=== PATIENT | female | born 1955 | race Caucasian/White ===

== ENCOUNTER 2017-11-16 00:47 | Outpatient (CLI) | payer MEDICAID, SELFPAY ==
--- NOTE | 2017-11-16 07:57 | DI.US_ITS ---
SYMPTOM/DIAGNOSIS: ABD PAIN, RT UPPER QUADRANT R10.11 ABDOMINAL ULTRASOUND: 11/16 Hepatic parenchyma appears homogeneous but perhaps mildly echogenic. Liver appears of normal size. No biliary dilatation is seen. Note is made of cholelithiasis without evidence of gallbladder wall thickening or pericholecystic fluid collection. The pancreas appears intact as visualized. The kidneys appear normal. Spleen appears normal. Abdominal aorta and IVC are of normal diameter. CONCLUSION: Cholelithiasis without ultrasound evidence of acute cholecystitis.
== END 2017-11-16 01:07 ==
PROVIDERS: PCP Nurse Practitioner Family; Visit Provider Nurse Practitioner Family
DX: R10.11 Right upper quadrant pain (principal); K80.20 Calculus of gallbladder without cholecystitis without obstruction
CPT/HCPCS: 76700

== ENCOUNTER 2017-12-28 13:01 | Outpatient (REF) | payer MEDICAID, SELFPAY ==
[2017-12-28 13:36] LABS: Cholesterol 218 mg/dL (50-200); HDL Cholesterol 73 mg/dL (40-60); LDL CHOLESTEROL 125 mg/dL (<100); Triglyceride 89 mg/dL (30-150)
== END 2017-12-28 13:21 ==
LOC: LBN 13:01
PROVIDERS: PCP Nurse Practitioner Family; Visit Provider Nurse Practitioner Family
DX: K80.20 Calculus of gallbladder without cholecystitis without obstruction (principal); R03.0 Elevated blood-pressure reading, without diagnosis of hypertension; E78.5 Hyperlipidemia, unspecified
CPT/HCPCS: 80061; 83721

== ENCOUNTER 2018-04-13 07:44 | Day surgery (SDC) | payer MEDICAID, SELFPAY ==
[2018-04-13] VITALS (10 sets, daily range): BP systolic 103–165; BP diastolic 40–91; PULSE 53–70; RESP 16–36; TEMP 35–36.5; O2SAT 94–99
[2018-04-13] MEDS: Lactated Ringers 1,000 ML 80 ML IV ×2 (08:21→12:36)
[2018-04-13] MEDS: Bupivacaine 0.25% Pres-Free 30 ML VIAL (09:12)
[2018-04-13] MEDS: Bupivacaine LIPOSOME/PF 133 MG/10 ML VIAL IJ (09:12)
[2018-04-13] MEDS: Bupivacaine 0.25% Pres-Free 10 ML VIAL (09:12)
--- NOTE | 2018-04-13 09:29 | W.PM.OP ---
Date of service: 04/13/18 Time of Service: 13:05 Operative Note DATE OF PROCEDURE: 04/13/18 PRE-OP DIAGNOSIS: Billiary Colic POST-OP DIAGNOSIS: same PROCEDURE: Laparoscopic Cholecystectomy SURGEON: Itzel Zimmerman CASTING AND LOCKER ROOM SERVICER: Geovanna Galvan ANESTHESIA: GETA ESTIMATED BLOOD LOSS: 50 PATHOLOGY: other (Gallbladder and contents) Patient was transported to: PACU Patient's condition: stable Indications: Mrs. Zapata is a pleasant 62 year old female who was seen in the office for recurrent Biliary colic symptoms. US showed stones but no wall thickening or pericholecystic fluid. Risks, benefits and complications were reviewed with the patient and she wished to proceed. No guarantees were given or implied. Findings: Normal appearing gallbladder Duct of sj identified and clipped Procedure Description: After informed consent was obtained the patient was taken to the PACU and anesthesia performed a erector spine block for postoperative comfort. Once the block was in place the patient was brought to the operating room, placed in a supine position and monitors were applied. SCDs were applied to her lower extremities and she was placed under general anesthesia and intubated without difficulty. Once intubated a Ontiveros catheter was placed in a standard sterile fashion. Her abdomen was then prepped and draped in a sterile fashion using ChloraPrep. At this point a timeout was done and the patient's name, date of , procedure type, allergies to medications, metal in her body, antibiotic and DVT prophylaxis, and fire risk was assessed. At this point 0.5% Marcaine with epi mixed with 1% Lidocaine was injected just above the umbilicus into the dermis and subcutaneous tissue. A 5 mm incision was made with an 11 blade. The skin next to the incision was grasped with penetrating towel clamps and while pulling up on the skin an attempt was made to place a 5 mm port under direct visualization. Due to the patient's size I did not feel comfortable pushing so hard to try to get through the fascia. The skin with incision was opened a little bit more with the 11 blade scalpel and the fascia was identified using S retractors. Once the fascia was identified it was grasped with 2 [place]'s and pulled up using an 11 blade a small incision was made into the fascia and the 5 mm port was then placed under direct visualization into the abdomen without difficulty. The abdomen was insufflated and then 3 more ports were placed. A 12 mm port was placed in the subxiphoid area and two 5 mm ports were placed in the right upper quadrant. The liver was inspected and some fatty infiltration was noted. The patient's bed was then turned to the left and her head was brought up. The gallbladder was grasped at the body and pushed towards the right shoulder, this allowed me to visualize the neck of the gallbladder. The neck was grasped and pulled towards the right flank and down allowing me to visualize the lymph node. Using a [place] dissector with cautery the lymph node was gently dissected away from the tissues and the fatty tissue was also dissected away. The cystic duct was identified it was normal in size. The duct was dissected 360 degrees using the [place] dissector in order for me to visualize its entrance into the gallbladder. Liver was noted behind it. There were no other structures right behind. Critical view was achieved. 3 clips were placed one proximal and 2 distal and the cystic duct was cut. The cystic artery was then identified and dissected 360 degrees. It was located just medial to the cystic duct. It was visualized going into the gallbladder. Once dissected 3 more clips were placed one proximal and 2 distal and the artery was cut. Using the hook dissector the gallbladder was then dissected away from the liver bed. [place] up the gallbladder there was a nother structure noted to be coming from the liver into the gallbladder. It was 1-2 mm in size. A clip was placed distal and it was transected. There was some bile noted. I through this may be a duct of Lushka but I had never seen one before. The gallbladder was completely dissected away from the liver and placed into an Endo Catch bag and pulled through the 12 mm port site. The 12-minute meter port was placed back into the abdomen under direct visualization. The liver bed was inspected no bleeding was noted. The abdomen was then irrigated with a liter and a half of normal saline until the effluent was clear. Once all the fluid was suctioned out 20 cc of the local anesthetic mixture was injected above the liver to help with postoperative right shoulder pain. The 12 mm and the 2 right upper quadrant ports were removed under direct visualization and no bleeding was noted from the fascia. The abdomen was deflated completely and lastly the umbilical port was removed. The skin was cleaned and the incisions were closed with 4-0 Vicryl. The skin was dried and skin affix was applied over the closed incisions. Needle and sponge counts were correct at the end of the case. The Ontiveros catheter was removed. At this point the patient was woken up extubated and taken back to recovery in stable condition. There were no immediate complications. Due to the extra duct that was clipped I ordered a HIDA scan to make sure that there was no leak and no injury to the common bile duct or the right hepatic duct. The HIDA scan is pending at the time of this dictation.
--- NOTE | 2018-04-13 09:29 | W.PM.DSUDISC ---
Discharge Plan Disposition Patient Disposition: HOME Condition: Good Discharge Details Reason For Visit: Billiary Cholic Attending Provider: Itzel Zimmerman Primary Care Provider: Tayler Bhatt Home Meds and New Rx's Prescriptions: New ibuprofen 600 mg tablet 600 mg PO QID PRN (Reason: fever or pain) Qty: 20 RF: 0 acetaminophen 325 mg capsule 650 mg PO Q6H PRN (Reason: fever or pain) Qty: 20 RF: 0 oxycodone 5 mg tablet 5 mg PO Q6H PRN (Reason: pain) Qty: 14 RF: 0 Continued estradiol [Vagifem] 10 mcg tablet 10 mcg VG DAILY RF: 0 multivitamin 1 EACH capsule 1 ea PO DAILY RF: 0 cholecalciferol (vitamin D3) [Vitamin D3] 400 UNIT capsule 400 unit PO DAILY RF: 0 atorvastatin 20 mg Tablet 20 mg PO QHS RF: 0 Discharge Instructions Instructions: Laparoscopic Cholecystectomy (DC) Additional Instructions: Activity at Home after surgery: 1. Make sure you walk outside at least 4 times per day 2. You should be able to climb a flight of stairs 3. No driving while in pain or taking pain medications 4. No strenuous activity or heavy lifting for 2 weeks (laparoscopic surgery) Diet, Nutrition, & wound healin. Avoid alcohol until after you are recovered from your surgery 2. Make sure to eat plenty of lean protein (meat, fish, eggs, cottage cheese, beans) 3. Eat a variety of fruits and vegetables. Eat plenty of high fiber foods to avoid constipation. 4. Drink plenty of liquids to stay hydrated and avoid constipation Pain Medications: 1. Alternate Tylenol 650 mg and Ibuprofen 600 mg every 3 hours 2. If a narcotic has been prescribed take as directed only for breakthrough pain For Constipation: 1. Take Milk of Magnesia or MiraLax as needed for constipation Other: 1. You may shower daily. Do not scrub the incisions 2. Do not soak the incisions for 1 week 3. You may alternate ice and heat as needed for pain and swelling Wound Care: 1. Keep the incisions clean and dry Please call our office if you develop: 1. Fevers >101.5 2. Nausea or Vomiting 3. Worsening pain 4. Redness and thick discharge from the wounds If after hours please call the Hospital at and ask to speak to the on-call surgeon Stand Alone Forms: Anes.Nerve Block Instructions, Mark De Luna ([facility]) Referrals: Jeni Almonte PA [PH[employer] SALES MANAGER] - 04/28/18 1:15 pm Activity:: Activity as Tolerated Diet:: low fat diet Discharge Orders Discharge Orders: Discharge Order (Routine); Ordered 04/13/18 Ordered By: Itzel Zimmerman DS: Diagnosis Discharge Diagnosis (1) Recurrent biliary colic: Status: Acute (2) S/P laparoscopic cholecystectomy: Status: Acute
--- NOTE | 2018-04-13 09:32 | PDOC.DSDIS_ITS ---
Discharge Plan Disposition Patient Disposition: HOME Condition: Good Discharge Details Reason For Visit: Billiary Cholic Attending Provider: Itzel Zimmerman Primary Care Provider: Tayler Bhatt Home Meds and New Rx's Prescriptions: New ibuprofen 600 mg tablet 600 mg PO QID PRN (Reason: fever or pain) Qty: 20 RF: 0 acetaminophen 325 mg capsule 650 mg PO Q6H PRN (Reason: fever or pain) Qty: 20 RF: 0 oxycodone 5 mg tablet 5 mg PO Q6H PRN (Reason: pain) Qty: 14 RF: 0 Continued estradiol [Vagifem] 10 mcg tablet 10 mcg VG DAILY RF: 0 multivitamin 1 EACH capsule 1 ea PO DAILY RF: 0 cholecalciferol (vitamin D3) [Vitamin D3] 400 UNIT capsule 400 unit PO DAILY RF: 0 atorvastatin 20 mg Tablet 20 mg PO QHS RF: 0 Discharge Instructions Instructions: Laparoscopic Cholecystectomy (DC) Additional Instructions: Activity at Home after surgery: 1. Make sure you walk outside at least 4 times per day 2. You should be able to climb a flight of stairs 3. No driving while in pain or taking pain medications 4. No strenuous activity or heavy lifting for 2 weeks (laparoscopic surgery) Diet, Nutrition, & wound healin. Avoid alcohol until after you are recovered from your surgery 2. Make sure to eat plenty of lean protein (meat, fish, eggs, cottage cheese, beans) 3. Eat a variety of fruits and vegetables. Eat plenty of high fiber foods to avoid constipation. 4. Drink plenty of liquids to stay hydrated and avoid constipation Pain Medications: 1. Alternate Tylenol 650 mg and Ibuprofen 600 mg every 3 hours 2. If a narcotic has been prescribed take as directed only for breakthrough pain For Constipation: 1. Take Milk of Magnesia or MiraLax as needed for constipation Other: 1. You may shower daily. Do not scrub the incisions 2. Do not soak the incisions for 1 week 3. You may alternate ice and heat as needed for pain and swelling Wound Care: 1. Keep the incisions clean and dry Please call our office if you develop: 1. Fevers >101.5 2. Nausea or Vomiting 3. Worsening pain 4. Redness and thick discharge from the wounds If after hours please call the Hospital at and ask to speak to the on-call surgeon Stand Alone Forms: Anes.Nerve Block Instructions, Mark De Luna ([facility]) Referrals: Jeni Almonte PA [PHYSICIANS BLENDING SUPERVISOR] - 04/28/18 1:15 pm Activity:: Activity as Tolerated Diet:: low fat diet Discharge Orders Discharge Orders: Discharge Order (Routine); Ordered 04/13/18 Ordered By: Itzel Zimmerman DS: Diagnosis Discharge Diagnosis (1) Recurrent biliary colic: Status: Acute (2) S/P laparoscopic cholecystectomy: Status: Acute
[2018-04-13] MEDS: CLINDAMYCIN 600 MG/50 ML BAG 100 MG IVPB (09:40)
--- NOTE | 2018-04-13 10:33 | GB_PTH ---
PATIENT: Xuan Zapata LOC: [facility] U#:[id number] AGE/SX: 62/F ROOM: RE04/13/[address]: Itzel Zimmerman MD : [id number] BED: DIS: 04/13/2018 SPEC #: [id number] RECD: 04/13/18 12:55 STATUS: TEENA REQ #: [id number] OZZIE: 04/13/18 10:[address]: Itzel Zimmerman DEPT: Surgical Specimen RECD BY: Lucia Prater ENTERED: 04/13/18 12:56 SP TYPE: GB OTHR DR: Tayler Bhatt Tissues: 1 - GALLBLADDER Procedures: GROSS AND MICRO LEVEL 3 Comments: [id number]
[2018-04-13] MEDS: Lidocaine 1% Multi-Dose 50 ML VIAL (10:37)
--- NOTE | 2018-04-13 10:55 | DI.NM_ITS ---
SYMPTOM/DIAGNOSIS: S/P LAP TAWANDA, CHECK ANATOMY, ? LEAK, PAIN HEPATOBILIARY SCAN: 4.6 millicuries of Technetium 99 M Mebrofenin were administered IV. There is normal hepatic uptake. The biliary tree and small bowel are promptly visualized. The patient is status post cholecystectomy. There is no evidence of bile leak. A small amount of reflux is seen into the stomach. IMPRESSION: No evidence of bile leak. Biliary reflux into the stomach.
--- NOTE | 2018-04-13 17:42 | DI.VRAD_ITS ---
EXAM: NM Hepatobiliary Including Gallbladder When Present EXAM DATE/TIME: 04/13/2018 5:08 PM CLINICAL HISTORY: 62 years old, female; Signs and symptoms; Other: R/O bile leak; Prior surgery; Surgery date: Post-operative (0-2 days); Surgery type: Cholecystectomy TECHNIQUE: Frontal dynamic images of the abdomen and pelvis were obtained over 60 minutes following the intravenous administration of 4.6 mCi technetium 99 mebrofenin. COMPARISON: No relevant prior studies available. FINDINGS: Liver: Unremarkable. Homogeneous radiotracer uptake. Gallbladder: Gallbladder surgically absent. Bile Ducts: Unremarkable. Clearly visualized. Stomach and bowel: Unremarkable. Radiotracer activity is seen in the small bowel. Other findings: Transient activity noted within the stomach suggestive of biliary reflux. IMPRESSION: 1. No evidence of bile leak. 2. Transient activity noted within the stomach suggestive of biliary reflux. Dictated and Authenticated by: Teddy Oden MD. Ordering:ALCIDES Robbins MD
== END 2018-04-13 18:10 | disposition home or self-care (01) ==
PROVIDERS: PCP Nurse Practitioner Family; Visit Provider Surgery
PROC: 0FT44ZZ Resection of Gallbladder, Percutaneous Endoscopic Approach (ICD-10-PCS; CPT 47562; principal; 2018-04-13 09:00)
DX: R10.84 Generalized abdominal pain (principal); K81.1 Chronic cholecystitis; K82.4 Cholesterolosis of gallbladder; Q44.1 Other congenital malformations of gallbladder; I10 Essential (primary) hypertension; F17.210 Nicotine dependence, cigarettes, uncomplicated
CPT/HCPCS: 47562; 76942; 78227; 88304; J1100; J1885; J2405

== ENCOUNTER 2019-11-17 09:16 | Outpatient (REF) | payer MEDICAID, SELFPAY ==
[2019-11-17 19:30] LABS: HCT 41.1 % (36.0-46.0); HGB 13.6 g/dL (11.2-15.7); MCH 31.6 pg (27.0-33.0); MCHC 33.1 % (32.0-36.0); MCV 95.4 fL (80-95); MPV 11.1 fL (8.0-11.0); Platelet Count 190 10^3/uL (130-400); RBC 4.31 10^6/uL (3.93-5.22); RDW 12.2 % (11.7-14.6); RDW-SD 42.9 fL; WBC 5.78 10^3/uL (4.4-10.8)
[2019-11-17 20:05] LABS: ALT 31 U/L (14-59); AST 19 U/L (15-37); Albumin 3.8 g/dL (3.4-5.0); Alkaline Phosphatase 57 U/L (46-116); Anion Gap 7.2 mmol/L (3-11); BUN 15 mg/dL (7-18); CO2 26.8 mmol/L (21.0-32.0); CREATININE 0.76 mg/dL (0.55-1.02); Calcium 8.8 mg/dL (8.5-10.1); Calculated LDL 114 mg/dL (<100); Chloride 105 mmol/L (98-107); Cholesterol 197 mg/dL (<200); Glucose 101 mg/dL (74-106); HDL Cholesterol 67 mg/dL (40-60); Sodium 139 mmol/L (136-145); Total Protein 6.6 g/dL (6.4-8.2); Triglyceride 80 mg/dL (<150)
[2019-11-17 22:55] LABS: Bilirubin, Total 0.3 mg/dL (0.2-1.0)
== END 2019-11-17 09:36 ==
LOC: NCHCN 09:16
PROVIDERS: PCP Nurse Practitioner Family; Visit Provider Nurse Practitioner Family
DX: I10 Essential (primary) hypertension (principal); E78.5 Hyperlipidemia, unspecified
CPT/HCPCS: 80053; 80061; 85027

== ENCOUNTER 2019-12-28 17:20 | Outpatient (REF) | payer MEDICAID, SELFPAY ==
[2020-01-03 01:01] LABS: Patient Race White; SARS-CoV-2 RNA Undetected (Undetected); SARS-CoV-2 Specimen Source Nasal
== END 2019-12-28 17:40 ==
LOC: NCHCN 17:20
PROVIDERS: PCP Nurse Practitioner Family; Visit Provider Nurse Practitioner Family
DX: Z20.828 Contact with and (suspected) exposure to other viral communicable diseases (principal)
CPT/HCPCS: U0003

== ENCOUNTER 2020-05-09 01:28 | Outpatient (CLI) | payer MEDICARE, MEDICAID, SELFPAY ==
--- NOTE | 2020-05-09 | DI.RAD_ITS ---
EXAM: XR CHEST 2V PA LATERAL CLINICAL HISTORY: SOB,R06.02. TECHNIQUE: 2D digital imaging was performed. COMPARISON: CR CHEST 2 VIEWS PA,LAT from 03/03/2012 FINDINGS: Heart size is normal. The mediastinum is not widened. Lungs are clear. No infiltrates nor pleural effusions. IMPRESSION: No acute pulmonary findings.No significant change compared to 2012. DATA REPOSITORY: RADIATION DOSE DELIVERED:
== END 2020-05-09 01:48 ==
PROVIDERS: PCP Nurse Practitioner Family; Visit Provider Nurse Practitioner Family
DX: R06.02 Shortness of breath (principal)
CPT/HCPCS: 71046

== ENCOUNTER 2021-01-27 16:11 | Outpatient (REF) | payer MEDICARE, MEDICAID, SELFPAY ==
[2021-01-27 20:42] LABS: BUN 14 mg/dL (7-18); CREATININE 0.8 mg/dL (0.55-1.02); Calcium 9.2 mg/dL (8.5-10.1); Chloride 104 mmol/L (98-107); Glucose 93 mg/dL (74-106); Potassium 4.5 mmol/L (3.5-5.1); Sodium 139 mmol/L (136-145)
== END 2021-01-27 16:12 | disposition home or self-care (01) ==
LOC: NCHCN 16:11
PROVIDERS: PCP Nurse Practitioner Family; Visit Provider Family Medicine
DX: I10 Essential (primary) hypertension (principal)
CPT/HCPCS: 80048

== ENCOUNTER → 2021-06-23 08:35 | Outpatient (BNVA) | payer MEDICARE, MEDICAID, BC, SELFPAY | PROVIDERS: PCP Nurse Practitioner Family; Referring Provider Nurse Practitioner Family | DX: M65.4 Radial styloid tenosynovitis [de Quervain] (principal); M25.532 Pain in left wrist | CPT/HCPCS: 20550; 99203; J1030 ==

== ENCOUNTER → 2021-07-16 02:52 | Outpatient (CLI) | payer MEDICARE, MEDICAID, BC, SELFPAY ==
--- NOTE | 2021-07-16 07:30 | DI.MAMMO_ITS ---
Exam(s) MAMMO SCREENING EXAM: MAMMO SCREENING CLINICAL HISTORY: SCREENING, Z12.39 TECHNIQUE: Mammograms were interpreted according to the usual protocol including computer analysis w GlucoSentient CAD system, tomosynthesis and C-view imaging. COMPARISON: FINDINGS: The breasts are of moderate density with fairly symmetrical distribution of fibroglandular tissue. N o dominant mass or clumped microcalcification is identified in either breast. The current examinatio n is compared with previous examinations including June 2013 and there has been no gross interval grewal ge in appearance in comparison with the prior studies. IMPRESSION: No specific evidence of malignancy at this time. Routine screening examinations are suggested at yea rly intervals in this age group according to the ACS ACR guidelines. BI-RADS Category 1 - Negative Breast Density - Category B - Scattered areas of fibroglandular density
--- NOTE | 2021-07-16 08:00 | DI.CTLCSR_ITS ---
Exam(s) CT CHEST LUNG CANCER SCREEN EXAM: CT CHEST LUNG CANCER SCREEN CLINICAL HISTORY: CIGARETTE SMOKER, F17.210,screening for lung ca TECHNIQUE: CT examination of the chest was performed utilizing low-dose lung cancer screening protoc ol. COMPARISON: No exams were available for comparison FINDINGS: Images obtained through the upper abdomen show unremarkable appearance of visualized portions of the liver and spleen. Note is made of a prior cholecystectomy. Note is made of coronary artery calcification. There is no mediastinal or hilar adenopathy. Mediastinal vascular structures appear intact by noncon trast criteria. Tracheobronchial tree appears intact. No pleural effusion or pleural-based mass. The lungs are predominantly clear with moderate central lobular emphysematous changes. There are 2 m illimeter noncalcified pulmonary nodules in both lower pulmonary lobes. IMPRESSION: Lung RADS Cat 2 - Benign Appearance / Behavior: Nodules with a very low likelihood of becoming a cli nically active cancer due to size or lack of growth Continue annual screening with LDCT in 12 months. Lung-RADS 1.0 CATEGORIES: Category 0 - Prior chest CT exam(s) being located for comparison. Category 1 - Annual screening in 12 months. No nodules or definitely benign nodules. Category 2 - Annual screening in 12 months. Benign appearance. Nodules with low likelihood of becomin g active cancer. Category 3 - 6-month follow-up. Probably benign. Short-term follow-up suggested. Nodules with low lik elihood of becoming active cancer. Category 4A - 3-month follow-up and CT/PET if >8 mm in size. Suspicious finding. Findings which requi re additional testing. Category 4B - Findings which require additional testing and tissue sampling. Suspicious finding. Category 4X - Category 3 or 4 nodules with additional features or imaging findings that increases the suspicion of malignancy. Modifier S- Potentially clinically significant finding. (Non lung cancer) RADIATION DOSE DELIVERED: 74.52mGy.cm Total DLP 1.84mGy CTDIvol 74.52mGy.cm Total DLP !Error CTDIvol RADIATION OPTIMIZATION: All CT scans at this facility use at least one of these dose optimization te chniques: automated exposure control; mA and/or kV adjustment per patient size (includes targeted exa ms where dose is matched to clinical indication); or iterative reconstruction.
== END ==
PROVIDERS: PCP Nurse Practitioner Family; Visit Provider Nurse Practitioner Family
DX: Z12.31 Encounter for screening mammogram for malignant neoplasm of breast (principal); Z12.2 Encounter for screening for malignant neoplasm of respiratory organs; F17.210 Nicotine dependence, cigarettes, uncomplicated; R91.8 Other nonspecific abnormal finding of lung field; J43.8 Other emphysema
CPT/HCPCS: 71271; 77063; 77067

== ENCOUNTER 2021-12-09 15:15 | Outpatient (REF) | payer MEDICARE, MEDICAID, SELFPAY ==
[2021-12-09 17:26] LABS: Anion Gap 8.9 mmol/L (3-11); BUN 17 mg/dL (7-18); CO2 27.1 mmol/L (21.0-32.0); CREATININE 0.8 mg/dL (0.55-1.02); Calcium 9.3 mg/dL (8.5-10.1); Calculated LDL 82 mg/dL (<100); Chloride 101 mmol/L (98-107); Cholesterol 181 mg/dL (<200); Estimated GFR 80.71 (mL/min/1.73m2); Glucose 105 mg/dL (74-106); HDL Cholesterol 82 mg/dL (40-60); Potassium 4.3 mmol/L (3.5-5.1); Sodium 137 mmol/L (136-145); Triglyceride 89 mg/dL (<150)
== END 2021-12-09 15:16 | disposition home or self-care (01) ==
LOC: NCHCN 15:15
PROVIDERS: PCP Nurse Practitioner Family; Visit Provider Nurse Practitioner Family
DX: I10 Essential (primary) hypertension (principal); E78.5 Hyperlipidemia, unspecified
CPT/HCPCS: 80048; 80061

== ENCOUNTER 2022-12-14 11:12 | Outpatient (REF) | payer MEDICARE, SELFPAY ==
[2022-12-14 15:32] LABS: ALT 31 U/L (14-59); AST 28 U/L (15-37); Albumin 3.9 g/dL (3.4-5.0); Alkaline Phosphatase 60 U/L (46-116); Anion Gap 10.8 mmol/L (3-11); BUN 8 mg/dL (7-18); Bilirubin, Total 0.6 mg/dL (0.2-1.0); CO2 24.2 mmol/L (21.0-32.0); CREATININE 0.9 mg/dL (0.55-1.02); Calcium 9.6 mg/dL (8.5-10.1); Calculated LDL 142 mg/dL (<100); Chloride 104 mmol/L (98-107); Cholesterol 239 mg/dL (<200); Estimated GFR 69.64 (mL/min/1.73m2); Glucose 112 mg/dL (74-106); HDL Cholesterol 70 mg/dL (40-60); Potassium 4.1 mmol/L (3.5-5.1); Sodium 139 mmol/L (136-145); Total Protein 7.2 g/dL (6.4-8.2); Triglyceride 139 mg/dL (<150)
== END 2022-12-14 11:13 | disposition home or self-care (01) ==
LOC: NCHCN 11:12
PROVIDERS: Nurse Practitioner Family; PCP Nurse Practitioner Family; Visit Provider Nurse Practitioner Family
DX: I10 Essential (primary) hypertension (principal); E78.5 Hyperlipidemia, unspecified
CPT/HCPCS: 80053; 80061

== ENCOUNTER → 2023-01-21 00:56 | Outpatient (CLI) | payer MEDICARE, SELFPAY ==
--- NOTE | 2023-01-21 | DI.NM_ITS ---
APPROVED REPORT Exam: Pharmacologic Patient Location: Out-Patient Room/Bed: Stress Nurse: Elizabeth Melendez RN Ordering Provider:JEAN-CLAUDE CHEUNG, Contact Number: [phone] BMI: 32.91 Baseline Rhythm: Sinus Bradycardia, LBBB Indications: intermittent CP, uncontrolled BP, GONZALES Medical History Medical History: HTN, tobacco use, emphysema Cardiac Medications: Albuterol, losartan-HCTZ, atenolol Allergies: penicillins, sulfa, macrobid, chantix Cardiac Risk Factors: HTN, HLD, smoker Previous Cardiac Procedures: none Pretest Chest Pain Characteristics: none Exercise History: none Physical Disabilities: none Lung Sounds: Clear to auscultation Heart Sounds: Regular, Bradycardia Stress Test Details Test: Pharmacologic stress testing performed using 0.4 mg of regadenoson per 5 mL given IV over 10 s econds. Nuclear Acquisition: Rest Tc-99m/Stress Tc-99m 1 day Rest Isotope: Tc-99m Sestamibi. Dose: 10.2 Date: 01/21/2023 Injection Time: 0840 Stress Isotope: Tc-99m Sestamibi. Dose: 32.8 Date: 01/21/2023 Injection Time: 1005 HR Resting HR Supine: 53 bpm Max Heart Rate (APMHR): 152.835098 bpm Target HR (85% APMHR): 129.419252 bpm Max HR Achieved: 88 bpm % of APMHR: 57.89 Recovery HR: 69 bpm BP Resting BP Supine: 179/73 mmHg Max BP: 190/70 mmHg Recovery BP: 172/68 mmHg ECG Resting ECG: Sinus Bradycardia, LBBB Ectopy: none Stress ECG: Sinus Rhythm, LBBB ST Change: No significant ST segment changes noted Arrhythmia: None Recovery ECG: Sinus Rhythm, LBBB Recovery ST Change: No significant ST segment changes noted Recovery Arrhythmia: None Clinical Rate Pressure Product: [id number] Stress ECG Conclusion 1. Resting electrocardiogram shows left axis, left bundle branch block 2. Patient underwent testing using pharmacologic stress with regadenoson 3. Heart rate achieved was 68% of predicted for age 4. Electrocardiographic portion of the test was nondiagnostic due to inadequate heart rate and LBBB 5. See MPI report Stress Test Summary STAGE HR BP SpO2 Symptoms NOTES Supine 53 179/70 96 1 min post Lexiscan injection 71 169/70 95 3 min post Lexiscan injection 76 190/70 98 6 min post Lexiscan injection 69 172/68 98 MPI Conclusion Myocardial perfusion is normal. There is no ischemia or evidence of prior infarction Ejection fraction is 57% with normal wall motion Radiologist Interpretation Radiologist agrees with Biomedical Engineering Technician's Interpretation. Radiologist Interpretation by: Elle Sarabia MD Interpretation Date/Time: 01/21/2023 15:27:56
[2023-01-21] MEDS: Regadenoson 0.4 MG/5 ML SYR IVP (09:52)
== END ==
PROVIDERS: PCP Nurse Practitioner Family; Visit Provider Nurse Practitioner Family
DX: R07.9 Chest pain, unspecified (principal)
CPT/HCPCS: 78452; 93016; 93018; 93017; J2785

== ENCOUNTER 2023-01-29 10:39 | Outpatient (CLI) | payer MEDICARE, SELFPAY | END 2023-01-29 10:40 | disposition home or self-care (01) | PROVIDERS: PCP Nurse Practitioner Family; Visit Provider Nurse Practitioner Family | DX: I10 Essential (primary) hypertension (principal) | CPT/HCPCS: 93005; 93010 ==

== ENCOUNTER 2023-03-08 16:30 | Outpatient (REF) | payer MEDICARE, SELFPAY ==
[2023-03-08 18:28] LABS: Anion Gap 8.1 mmol/L (3-11); BUN 6 mg/dL (7-18); CO2 27.9 mmol/L (21.0-32.0); CREATININE 0.9 mg/dL (0.55-1.02); Calcium 9.8 mg/dL (8.5-10.1); Chloride 97 mmol/L (98-107); Estimated GFR 69.64 (mL/min/1.73m2); Glucose 119 mg/dL (74-106); Potassium 4.4 mmol/L (3.5-5.1); Sodium 133 mmol/L (136-145)
== END 2023-03-08 16:31 | disposition home or self-care (01) ==
LOC: NCHCN 16:30
PROVIDERS: PCP Nurse Practitioner Family; Visit Provider Nurse Practitioner Family
DX: I10 Essential (primary) hypertension (principal)
CPT/HCPCS: 80048

== ENCOUNTER 2023-08-09 16:02 | Outpatient (REF) | payer MEDICARE, SELFPAY ==
[2023-08-09 16:01] LABS: Abs Immature Grans 0.02 10^3/uL (0.0-0.06); Absolute Basophil Count 0.03 10^3/uL (0.0-0.2); Absolute Eosinophil Count 0.11 10^3/uL (0.0-0.7); Absolute Lymphocyte Count 1.51 10^3/uL (1.2-3.4); Absolute Monocyte Count 0.57 10^3/uL (0.1-0.8); Absolute Neutrophil Count 3.51 10^3/uL (1.2-6.7); Basophils % 0.5 %; Eosinophils % 1.9 %; HCT 44.7 % (36.0-46.0); HGB 14.8 g/dL (11.2-15.7); Immature Grans % 0.3 %; Lymphocytes % 26.3 %; MCH 31.7 pg (27.0-33.0); MCHC 33.1 % (32.0-36.0); MCV 96 fL (80-95); Monocytes % 9.9 %; Neutrophils % 61.1 %; RBC 4.67 10^6/uL (3.93-5.22); RDW 12.3 % (11.7-14.6); RDW-SD 43.6 fL; WBC 5.75 10^3/uL (4.4-10.8)
[2023-08-09 16:21] LABS: Diff Comment PLT Morph Reviewed; RBC Morphology Normal
[2023-08-09 17:06] LABS: ALT 30 U/L (14-59); AST 18 U/L (15-37); Albumin 3.8 g/dL (3.4-5.0); Alkaline Phosphatase 63 U/L (46-116); Anion Gap 8.9 mmol/L (3-11); BUN 12 mg/dL (7-18); Bilirubin, Total 0.62 mg/dL (0.2-1.0); CO2 29.1 mmol/L (21.0-32.0); CREATININE 0.8 mg/dL (0.55-1.02); Calcium 9.7 mg/dL (8.5-10.1); Chloride 103 mmol/L (98-107); Estimated GFR 80.21 (mL/min/1.73m2); Glucose 102 mg/dL (74-106); Magnesium 1.6 mg/dL (1.8-2.4); Potassium 4.7 mmol/L (3.5-5.1); Sodium 141 mmol/L (136-145); Total Protein 6.7 g/dL (6.4-8.2)
== END 2023-08-09 16:03 | disposition home or self-care (01) ==
LOC: NCHCN 16:02
PROVIDERS: PCP Nurse Practitioner Family; Visit Provider Nurse Practitioner Family
DX: R60.0 Localized edema (principal); I10 Essential (primary) hypertension
CPT/HCPCS: 80053; 83735; 85025

== ENCOUNTER 2023-11-23 13:02 | Outpatient (REF) | payer MEDICARE, SELFPAY ==
[2023-11-23 19:42] LABS: Anion Gap 8.6 mmol/L (3-11); BUN 10 mg/dL (7-18); CO2 30.4 mmol/L (21.0-32.0); CREATININE 0.9 mg/dL (0.55-1.02); Calcium 9.8 mg/dL (8.5-10.1); Calculated LDL 128 mg/dL (<100); Chloride 99 mmol/L (98-107); Cholesterol 233 mg/dL (<200); Glucose 107 mg/dL (74-106); HDL Cholesterol 88 mg/dL (40-60); Magnesium 1.7 mg/dL (1.8-2.4); Potassium 4.3 mmol/L (3.5-5.1); Sodium 138 mmol/L (136-145); Triglyceride 88 mg/dL (<150)
== END 2023-11-23 13:03 | disposition home or self-care (01) ==
LOC: NCHCN 13:02
PROVIDERS: PCP Nurse Practitioner Family; Visit Provider Nurse Practitioner Family
DX: E78.5 Hyperlipidemia, unspecified (principal)
CPT/HCPCS: 80048; 80061; 83735

== ENCOUNTER 2024-02-16 11:20 | Inpatient (IN) | payer MEDICARE, SELFPAY ==
[2024-02-16] VITALS (27 sets, daily range): BP systolic 114–207; BP diastolic 40–109; PULSE 63–83; RESP 11–33; TEMP 36.3–36.6; O2SAT 92–97
--- NOTE | 2024-02-16 11:15 | RT.EKG_ITS ---
APPROVED REPORT Exam: Resting ECG Reason for Exam: Stroke ? Patient Location: E HR:73 bpm ECG Measurements Heart Rate 73 AXIS SD 164 P 65 QRSd 154 QRS -55 QT 446 T 98 QTc 491 Conclusion Sinus rhythm...normal P axis, V-rate 60- 99 LVH with secondary repolarization abnormality...multi-LVH criteria, abnrm ST-T Anterior infarct, old...Q >40mS, abnormal ST-T, V2-V5 Physician: IVCD vs incomplete LBBB. New compared to prior ekg 11 years ago
--- NOTE | 2024-02-16 11:30 | DI.CT_ITS ---
Exam(s) CT BRAIN NECK CTA EXAM: CT BRAIN NECK CTA CLINICAL HISTORY: stroke, speech and right upper ext deficits. TECHNIQUE: Imaging Protocol: Axial CT angiography was performed with multi-slice acquisition and mu lti-planar and/or 3D reconstructions. CONTRAST MATERIAL: Intravenous: Omnipaque 350 Contrast volume:structured data in ml COMPARISON: No exams were available for comparison FINDINGS: CTA Neck W: Aortic arch anatomy: The aortic arch anatomy is conventional. Some calcified plaque is noted at the origin of the left subclavian artery but without an obvious critical stenosis at this level nor tight stenosis in this artery proximal to the takeoff point of the left vertebral artery. Anterior circulation: Both common carotid arteries ascend with normal luminal diameters. On the left side there is significant calcified plaque at the carotid bifurcation with approximately 80 percent stenosis at this level. Plaque extends into the origin of the left ICA. Above this level the left ICA in the mid-upper neck is patent, although does exhibit some tortuosity prior to enterin g the skull base-left carotid canal. On the opposite-right side there is mild amount of plaque at the carotid bulb. Calcified plaque in t he proximal right ICA posterior wall noted with approximately 30 percent stenosis on this side. Abov e this level the right ICA in the upper neck is patent as well as in the right carotid canal within t he skull base. Posterior circulation: Both vertebral arteries originated conventional fashion off of the subclavian arteries. Left vertebr al artery is dominant. There is no significant stenosis at its origin thorough within this vessel wi thin the foramen transversarium. Also no evidence of dissection. At the skull base it is the domina nt contributor to the formation of the basilar artery. The right vertebral artery originates in conventional fashion off of the right subclavian artery with some mild plaque at its origin. The right vertebral artery ascends with smaller caliber than the le ft vertebral artery but no evidence of occlusion nor dissection. At the skull base the right vertebr al artery also contributes to the formation of the basilar artery. CTA Brain W: Anterior circulation: Both internal carotid arteries are patent in the skull base-carotid canals as well as within the cave rnous sinuses. There is some circumferential mural plaque within the intra cavernous ICAs bilaterall y. The supraclinoid aspects of the ICAs are patent. Both A1 segments are patent as are the anterior cer ebral arteries and there is no evidence of aneurysm at the level of the anterior communicating artery . Both middle cerebral arteries are patent with no evidence of significant stenosis nor intraluminal th rombus. There also no aneurysms of these vessels. Posterior circulation: The basilar artery ascends in the midline. Distally it gives off patent bilateral superior cerebella r arteries. Above this level the basilar artery terminates as patent bilateral posterior cerebral arteries. There are posterior communicating arteries on both sides the amzyxb-te-Akyndy, slightly larger on the left side There is no evidence of aneurysm at the tip of the basilar artery nor elsewhere in the ohqpkw-yr-Xtvv is. CT BRAIN: There is no evidence of intracranial hemorrhage, mass effect, or shift of midline structures. There are no extra-axial fluid collections. Ventricles are not enlarged or shifted. There are no ring enh ancing lesions in the brain. There is an abnormal hypodense area in the left occipital parietal jass on concerning for infarct at this level. There is some gyral enhancement at this level noted on the delayed postcontrast images. No ring enhancing lesions Incidental findings: There are nodules noted in both thyroid lobes. IMPRESSION: 1. There is significant partially calcified plaque in the carotid arteries on both sides the neck. T here is approximately 80 percent stenosis in the left carotid bulb. There is approximately 20-30 per cent stenosis in the proximal right ICA 2. Patent vertebral arteries. The left vertebral artery is dominant. Both vertebral arteries contri bute to the formation of the basilar artery at the skull base. No evidence of vertebral artery throm bosis nor dissection. 3. Patent intracranial arteries. 4. However, there is an abnormal area of hypodensity in the left occipital lobe region consistent wit h nonhemorrhagic infarct. There is some gyral enhancement at this level noted. No ring enhancing le sions evident at this level nor elsewhere in the brain. 5. Recommend follow-up MRI diffusion imaging 6. Incidentally noted are prominent nodules in both thyroid lobes which can be further investigated w ith thyroid ultrasound Report called by myself to ER physician 03/06/2024 at 12:23 p.m. RADIATION DOSE DELIVERED: 2,119.04mGy.cm Total DLP DATA REPOSITORY: All CT scans at this facility are submitted to the National Radiology Data Registry (NRDR) Dose Index Registry (DIR) with the [employer] (A[employer]). RADIATION OPTIMIZATION: All CT scans at this facility use at least one of these dose optimization te chniques: automated exposure control; mA and/or kV adjustment per patient size (includes targeted exa ms where dose is matched to clinical indication); or iterative reconstruction.
[2024-02-16] MEDS: Normal Saline - Diluent 50 ML VIAL IJ (11:39)
[2024-02-16] MEDS: Omnipaque 350 MG/ML 100 ML BTL 70 ML IJ (11:40)
[2024-02-16 11:43] LABS: Abs Immature Grans 0.02 10^3/uL (0.0-0.06); Absolute Basophil Count 0.04 10^3/uL (0.0-0.2); Absolute Eosinophil Count 1.04 10^3/uL (0.0-0.7); Absolute Lymphocyte Count 1.76 10^3/uL (1.2-3.4); Absolute Monocyte Count 0.49 10^3/uL (0.1-0.8); Absolute Neutrophil Count 4.15 10^3/uL (1.2-6.7); Basophils % 0.5 %; Eosinophils % 13.9 %; HCT 48.5 % (36.0-46.0); HGB 16.3 g/dL (11.2-15.7); Immature Grans % 0.3 %; Lymphocytes % 23.5 %; MCH 31.6 pg (27.0-33.0); MCHC 33.6 % (32.0-36.0); MCV 94 fL (80-95); Monocytes % 6.5 %; Neutrophils % 55.3 %; RBC 5.16 10^6/uL (3.93-5.22); RDW 12.3 % (11.7-14.6); RDW-SD 42.8 fL
--- NOTE | 2024-02-16 11:43 | ED.GENADUL_ITS ---
Discharge Plan Disposition Patient Disposition: Admit to [facility] Condition: Stable Discharge Details Chief Complaint: CVA/TIA Clinical Impression: Left-sided cerebrovascular accident (CVA), Stroke Primary Care Provider: Meka Baltazar ED Midlevel Provider: Leonela Martin ED Provider: Yogi Ojeda Home Meds and New Rx's Prescriptions: No Action estradiol [Vagifem] 10 mcg tablet 10 mcg VG DAILY multivitamin 1 EACH capsule 1 ea PO DAILY nicotine (polacrilex) [Nicorette] 4 mg lozenge 4 mg buccal Q8H PRN losartan-hydrochlorothiazide 50-12.5 mg tablet 1 tab PO DAILY albuterol sulfate [ProAir HFA] 90 mcg/actuation HFA aerosol inhaler 2 puff inhalation Q6H PRN cholecalciferol (vitamin D3) 25 mcg (1,000 unit) tablet 25 mcg PO DAILY atorvastatin 20 mg Tablet 20 mg PO QHS ibuprofen 600 mg tablet 600 mg PO QID PRN (Reason: fever or pain) Qty: 20 0RF acetaminophen 325 mg capsule 650 mg PO Q6H PRN (Reason: fever or pain) Qty: 20 0RF amlodipine 10 mg tablet 10 mg PO DAILY Patient Comments: TAKE ONE TABLET BY MOUTH EVERY DAY HPI General Date/Time Provider Initiated Documentation: 02/16/24 11:34 . HPI Narrative: 68-year-old female with a past medical history of cholecystectomy, emphysema, hypertension, high cholesterol, tobacco use who recently quit just a month or so ago, with no history of stroke or heart attack in the past, who presents today for strokelike complaint. Patient states that last night she felt that her speech was a little atypical and off, her significant other not iced this at around 4 PM when she got home from work. Then when she woke up this morning at 730am she noticed that her speech was significantly off, and she had difficulty verbalizing most things. Patient then came to the ER at around 11:30 AM for further evaluation. She does admit to some chronic intermittent weakness of the right upper extremity but states that it feels fine now. She denies any difficulty walking or ambulating. She does admit to a chronic headache for the last month. She denies any visual changes. She denies any numbness tingling or weakness otherwise. She denies any fall imbalance or trauma. She does not take any blood thinners. She does not take a daily aspirin. No other complaints at this time. Related Data Home Medications ?Medication ?Instructions ?Recorded ?Confirmed multivitamin 1 ea PO DAILY 12/29/16 02/16/24 estradiol 10 mcg vaginal tablet 10 mcg vaginal DAILY 11/22/17 02/16/24 (Vagifem) atorvastatin 20 mg tablet 20 mg PO QHS 04/11/18 02/16/24 acetaminophen 325 mg capsule 650 mg (2 x 325 mg) PO Q6H PRN 04/13/18 02/16/24 fever or pain #20 caps ibuprofen 600 mg tablet 600 mg PO QID PRN fever or pain 04/13/18 02/16/24 #20 tabs albuterol sulfate 90 mcg/actuation 2 puff inhalation Q6H PRN 06/10/21 02/16/24 aerosol inhaler (ProAir HFA) cholecalciferol (vitamin D3) 25 25 mcg PO DAILY 06/10/21 02/16/24 mcg (1,000 unit) tablet losartan 50 mg-hydrochlorothiazide 1 tab PO DAILY 06/10/21 02/16/24 12.5 mg tablet nicotine (polacrilex) 4 mg buccal 4 mg buccal Q8H PRN 06/10/21 02/16/24 lozenge (Nicorette) amlodipine 10 mg tablet 10 mg PO DAILY 02/16/24 02/16/24 Previous Rx's ?Medication ?Instructions ?Recorded acetaminophen 325 mg capsule 650 mg (2 x 325 mg) PO Q6H PRN 04/13/18 fever or pain #20 caps ibuprofen 600 mg tablet 600 mg PO QID PRN fever or pain 04/13/18 #20 tabs Allergies Allergy/AdvReac Type Severity Reaction Status Date / Time Penicillins Allergy Severe Swelling/Ed Verified 06/23/21 08:44 yancy Sulfa (Sulfonamide Allergy Severe Swelling/Ed Verified 06/23/21 08:44 Antibiotics) yancy codeine Allergy Intermediate hives Verified 06/23/21 08:44 nitrofurantoin (From AdvReac Intermediate Nausea Verified 06/23/21 08:44 Macrobid) nitrofurantoin AdvReac Intermediate Psychosis Verified 06/23/21 08:44 macrocrystalline (From Macrobid) varenicline (From Chantix) AdvReac Intermediate Psychosis Verified 06/23/21 08:44 General Stated Complaint: CVA/TIA ALIYAH: 3 Exam Narrative Exam Narrative: 1.Const: Well-nourished, Well-developed, appearing stated age 2.Eyes: PERRL, no conjunctival injection, and symmetrical lids. 3.ENT: Atraumatic external nose and ears. Moist MM. Neck: Symmetric, trachea midline, No thyromegaly. 4.CVS: +S1/S2, Peripheral pulses 2+ and equal in all extremities. Brisk capillary refill in all extremities. 5.RESP: Unlabored respiratory effort. Clear to auscultation bilaterally. No wheezes rales or rhonchi 6.GI: Soft, Nontender/Nondistended, No hepatosplenomegaly. No guarding or rebound. 7.MSK: Normocephalic/Atraumatic, Extremities w/o deformity or ttp No cyanosis or clubbing, Normal movement of all extremities 8.Skin: Warm, Dry. No rashes or lesions. 9.Neuro: durable medical equipment repairer II-XII grossly intact. Sensation grossly intact, no focal neurologic deficits. CN 2-12 tested and intact, patient is able to hold bilateral arms up for 5 seconds and there is no pronator drift, patient also holds legs up for 10 seconds bilaterally without any drop, sensation intact to light touch in hands and feet bilaterally. Cerebellar exam demonstrates atypical right ncqbul-idhd-cakunj when compared to the left, wvdv-ldxv-nkdf normal, rapid alternating movements normal, fine finger movements. Visual gay intact peripherally. Normal verbal understanding, however difficulty with verbalization. 10.Psych: (AAO) x3. Appropriate mood and affect Course Vital Signs Vital signs: Vital Signs Pulse 80 02/16/24 11:23 Respiratory Rate 02/16/24 11:23 Blood Pressure 207/73 H 02/16/24 11:23 Pulse Oximetry 96 02/16/24 11:23 Pulse 80 02/16/24 11:23 Respiratory Rate 20 02/16/24 11:23 Blood Pressure 207/73 H 02/16/24 11:23 Blood Pressure Position Sitting 02/16/24 11:23 Pulse Oximetry 96 02/16/24 11:23 Oxygen Delivery Method Room Air 02/16/24 11:23 Oxygen Flow Rate 0 02/16/24 11:23 Medical Decision Making 68-year-old female with a past medical history of cholecystectomy, emphysema, hypertension, high cholesterol, tobacco use who recently quit just a month or so ago, with no history of stroke or heart attack in the past, who presents today for strokelike complaint. Patient states that last night she felt that her speech was a little atypical and off, her significant other noticed this at around 4 PM when she got home from work. Then when she woke up this morning at 730am she noticed that her speech was significantly off, and she had difficulty verbalizing most things. Patient then came to the ER at around 11:30 AM for further evaluation. She does admit to some chronic intermittent weakness of the right upper extremity but states that it feels fine now. She denies any difficulty walking or ambulating. She does admit to a chronic he adache for the last month. She denies any visual changes. She denies any numbness tingling or weakness otherwise. She denies any fall imbalance or trauma. She does not take any blood thinners. She does not take a daily aspirin. No other complaints at this time. Physical exam demonstrates findings of CN 2-12 tested and intact, patient is able to hold bilateral arms up for 5 seconds and there is no pronator drift, patient also holds legs up for 10 seconds bilaterally without any drop, sensation intact to light touch in hands and feet bilaterally. Cerebellar exam demonstrates atypical right axmbix-mjbt-plamtx when compared to the left, zewu-ycrp-gprz normal, rapid alternating movements normal, fine finger movements. Visual gay intact peripherally. Normal verbal understanding, gill blu difficulty with verbalization. NIH stroke scale is 2 secondary to 1 point for mild dysarthria, and 1.4 mild limb ataxia in the right upper extremity. Last known well is variable, with the mild symptoms she had at 4 PM, we could potentially call that the last known well however she went to bed at around 10 or 11 PM last night and when she woke up her symptoms were worse, so last known well would be last evening. Patient by this account is not a candidate for tPA or TNK at this time, stroke remains high in the differential, but bleed, mass lesion, or other potential physiologic disturbance remains of concern. She has no nuchal rigidity or neck stiffness. Headache is very mild, symptoms inconsistent with meningitis or acute bleed. Will CT CTA of the brain, will evaluate for concerning abnormalities, will monitor closely and reassess. Of note the patient's EKG does demonstrate left bundle branch block versus interventricular conduction delay. This is new compared to prior EKGs from 11 years ago. 2:[address] imaging has returned, there is evidence of hypodensity in the left occipital lobe consistent with a nonhemorrhagic infarct. No evidence of bleed. There is carotid artery stenosis. Patient remains hemodynamically stable. Patient has been seen and assessed by Dr. Levy of teleneurology. After reviewing the images and assessing her himself, he agrees with the diagnosis of stroke, and also agrees that she is not a candidate for thrombolytics at this time. Patient has been given full dose 325 aspirin, neurology does recommend increase of the atorvastatin to 80 mg. We will give this dose here. Patient will be admitted for MRI, echo, and telemonitoring. Additionally neurology did have concern that perhaps with her symptomatology there may be a frontal lobe infarct that we are not seeing, which is part of the onus for getting the MRI. Patient will be admitted for further management. I have extensively reviewed the treatment plan with the patient. I have addressed all patient concerns at this time. I have also discussed the plan with the admitting physician and they agree with the current assessment and plan and have agreed to assume responsibility for the patient. All parties demonstrate verbal understanding and agreement with our assessment and plan at this time. The documentation in this chart was dictated using [employer] dictation software. Please excuse any dictation errors. FINDINGS: CTA Neck W: Aortic arch anatomy: The aortic arch anatomy is conventional. Some calcified plaque is noted at the origin of the left subclavian artery but without an obvious critical stenosis at this level nor tight stenosis in this artery proximal to the takeoff point of the left vertebral artery. Anterior circulation: Both common carotid arteries ascend with normal luminal diameters. On the left side there is significant calcified plaque at the carotid bifurcation with approximately 80 percent stenosis at this level. Plaque extends into the origin of the left ICA. Above this level the left ICA in the mid-upper neck is patent, although does exhibit some tortuosity prior to entering the skull base-left carotid canal. On the opposite-right side there is mild amount of plaque at the carotid bulb. Calcified plaque in the proximal right ICA posterior wall noted with approximately 30 percent stenosis on this side. Above this level the right ICA in the upper neck is patent as well as in the right carotid canal within the skull base. Posterior circulation: Both vertebral arteries originated conventional fashion off of the subclavian arteries. Left vertebral artery is dominant. There is no significant stenosis at its origin thorough within this vessel within the foramen transversarium. Also no evidence of dissection. At the skull base it is the dominant contributor to the formation of the basilar artery. The right vertebral artery originates in conventional fashion off of the right subclavian artery with some mild plaque at its origin. The right vertebral artery ascends with smaller caliber than the left vertebral artery but no evidence of occlusion nor dissection. At the skull base the right vertebral artery also contributes to the formation of the basilar artery. CTA Brain W: Anterior circulation: Both internal carotid arteries are patent in the skull base-carotid canals as well as within the cavernous sinuses. There is some circumferential mural plaque within the intra cavernous ICAs bilaterally. The supraclinoid aspects of the ICAs are patent. Both A1 segments are patent as are the anterior cerebral arteries and there is no evidence of aneurysm at the level of the anterior communicating artery. Both middle cerebral arteries are patent with no evidence of significant stenosis nor intraluminal thrombus. There also no aneurysms of these vessels. Posterior circulation: The basilar artery ascends in the midline. Distally it gives off patent bilateral superior cerebellar arteries. Above this level the basilar artery terminates as patent bilateral posterior cerebral arteries. There are posterior communicating arteries on both sides the ynhmeo-vi-Uvhlan, slightly larger on the left side There is no evidence of aneurysm at the tip of the basilar artery nor elsewhere in the dpswoi-tv-Rhfvnw. CT BRAIN: There is no evidence of intracranial hemorrhage, mass effect, or shift of mid line structures. There are no extra-axial fluid collections. Ventricles are not enlarged or shifted. There are no ring enhancing lesions in the brain. There is an abnormal hypodense area in the left occipital parietal region concerning for infarct at this level. There is some gyral enhancement at this level noted on the delayed postcontrast images. No ring enhancing lesions Incidental findings: There are nodules noted in both thyroid lobes. IMPRESSION: 1. There is significant partially calcified plaque in the carotid arteries on both sides the neck. There is approximately 80 percent stenosis in the left carotid bulb. There is approximately 20-30 percent stenosis in the proximal right ICA 2. Patent vertebral arteries. The left vertebral artery is dominant. Both vertebral arteries contribute to the formation of the basilar artery at the skull base. No evidence of vertebral artery thrombosis nor dissection. 3. Patent intracranial arteries. 4. However, there is an abnormal area of hypodensity in the left occipital lobe region consistent with nonhemorrhagic infarct. There is some gyral enhancement at this level noted. No ring enhancing lesions evident at this level nor elsewhere in the brain. 5. Recommend follow-up MRI diffusion imaging 6. Incidentally noted are prominent nodules in both thyroid lobes which can be further investigated with thyroid ultrasound Quality:SDOH Health Related Social Needs: No Data to Display PFSH All Active Problems (Updated 02/16/24 @ 14:11 by Yogi Ojeda DO) Stroke (Chronic) Left-sided cerebrovascular accident (CVA) (Acute) De Quervain's tenosynovitis (Acute) left wrist Emphysema lung (Acute) S/P laparoscopic cholecystectomy (Acute ~04/13/18) Recurrent biliary colic (Acute) Gallstones (Acute) Medical History (Updated 02/16/24 @ 14:11 by Yogi Ojeda DO) Ptosis Trochanteric bursitis Hypertension Diverticulosis Tobacco use Elevated blood pressure reading Surgical History (Updated 04/13/18 @ 09:30 by Itzel Zimmerman MD) fibroid removal Vaginal hysterectomy Colonoscopy - MAC (01/04/17) Appendectomy Social History Smoking/Tobacco Use Status: Current every day Smoking risk assessment performed?: Yes Alcohol Intake: current Alcohol Intake frequency: a few times a week Drug use: Never Substance use type: does not use
[2024-02-16 11:55] LABS: PTT Activated 23.9 sec (23.6-32.8); Prothrombin Time 10.4 sec (9.1-11.1)
[2024-02-16 12:06] LABS: ALT 81 U/L (14-59); AST 48 U/L (15-37); Albumin 4.2 g/dL (3.4-5.0); Alkaline Phosphatase 93 U/L (46-116); Anion Gap 5.8 mmol/L (3-11); BUN 10 mg/dL (7-18); Bilirubin, Total 0.84 mg/dL (0.2-1.0); CO2 30.2 mmol/L (21.0-32.0); CREATININE 0.9 mg/dL (0.55-1.02); Calcium 9.1 mg/dL (8.5-10.1); Chloride 100 mmol/L (98-107); Glucose 105 mg/dL (74-106); Magnesium 1.8 mg/dL (1.8-2.4); Potassium 4.5 mmol/L (3.5-5.1); Sodium 136 mmol/L (136-145); TSH (W/Ref FT4) 1.27 uIU/mL (0.36-3.74); Total Protein 7.8 g/dL (6.4-8.2); Troponin I 8 ng/L (<or=51)
[2024-02-16 12:58] LABS: Troponin I 8 ng/L (<or=51)
[2024-02-16] MEDS: Aspirin 81 MG CHEW PO (13:13)
[2024-02-16] MEDS: Aspirin 81 MG CHEW 162 MG PO (13:22)
[2024-02-16] MEDS: Atorvastatin 40 MG TAB 80 MG PO (13:22)
--- NOTE | 2024-02-16 14:36 | W.PM.HP.N ---
Date of service: 02/16/24 Time of Service: 14:36 Assessment and Plan Assessment and plan (1) Left-sided cerebrovascular accident (CVA): Status: Acute Assessment and plan: Will order an MRI as well as echocardiogram and lipid panel. Will allow permissive hypertension. (2) Emphysema lung: Status: Acute Assessment and plan: Patient is on albuterol only and I do not see an x-ray done. Will order a chest x-ray secondary to her physical exam findings and history (3) Tobacco use: Assessment and plan: Placed on NicoDerm 7 mg daily (4) Hypertension: Assessment and plan: As above History of Present Illness History of Present Illness Chief Complaint: speech difficulty Narrative: This is a 68-year-old female whose medical problems include hypertension as well as possible emphysema and nicotine abuse who presented to the ED this morning with difficulties with her speech as well as movement. Patient was having some problems with word finding yesterday but did not come into the hospital until this morning when her symptoms became significantly worse. Workup in the ED including radiographs and labs as well as an EKG were reviewed. CT scan shows carotid artery stenosis as well as an abnormal area of hypodensity in the left occipital lobe region consistent with a nonhemorrhagic infarct. Incidental findings include thyroid nodules with a recommendation to order a thyroid ultrasound. Patient was seen by Dr. Ojeda in the ED and a consultation to teleneurology was placed who recommended admission for further workup. Patient will be admitted to the hospitalist service Review of Systems All systems reviewed & are unremarkable except as noted in HPI and below PFSH All Active Problems (Updated 02/16/24 @ 14:11 by Yogi Ojeda DO) Stroke (Chronic) Left-sided cerebrovascular accident (CVA) (Acute) De Quervain's tenosynovitis (Acute) left wrist Emphysema lung (Acute) S/P laparoscopic cholecystectomy (Acute ~04/13/18) Recurrent biliary colic (Acute) Gallstones (Acute) Medical History (Updated 02/16/24 @ 14:11 by Yogi Ojeda DO) Ptosis Trochanteric bursitis Hypertension Diverticulosis Tobacco use Elevated blood pressure reading Surgical History (Updated 04/13/18 @ 09:30 by Itzel Zimmerman MD) fibroid removal Vaginal hysterectomy Colonoscopy - MAC (01/04/17) Appendectomy Social History Smoking/Tobacco Use Status: Current every day Smoking risk assessment performed?: Yes Alcohol Intake: current Alcohol Intake frequency: a few times a week Drug use: Never Substance use type: does not use Meds Allergies and Home Medications Allergies Allergy/AdvReac Type Severity Reaction Status Date / Time Penicillins Allergy Severe Swelling/Ed Verified 06/23/21 08:44 yancy Sulfa (Sulfonamide Allergy Severe Swelling/Ed Verified 06/23/21 08:44 Antibiotics) yancy codeine Allergy Intermediate hives Verified 06/23/21 08:44 nitrofurantoin (From AdvReac Intermediate Nausea Verified 06/23/21 08:44 Macrobid) nitrofurantoin AdvReac Intermediate Psychosis Verified 06/23/21 08:44 macrocrystalline (From Macrobid) varenicline (From Chantix) AdvReac Intermediate Psychosis Verified 06/23/21 08:44 Home Medications ?Medication ?Instructions ?Recorded ?Confirmed ?Type multivitamin 1 ea PO DAILY 12/29/16 02/16/24 History estradiol 10 mcg vaginal tablet 10 mcg vaginal DAILY 11/22/17 02/16/24 History (Vagifem) atorvastatin 20 mg tablet 20 mg PO QHS 04/11/18 02/16/24 History acetaminophen 325 mg capsule 650 mg (2 x 325 mg) PO Q6H PRN 04/13/18 02/16/24 Rx fever or pain #20 caps ibuprofen 600 mg tablet 600 mg PO QID PRN fever or pain 04/13/18 02/16/24 Rx #20 tabs albuterol sulfate 90 mcg/actuation 2 puff inhalation Q6H PRN 06/10/21 02/16/24 History aerosol inhaler (ProAir HFA) cholecalciferol (vitamin D3) 25 25 mcg PO DAILY 06/10/21 02/16/24 History mcg (1,000 unit) tablet losartan 50 mg-hydrochlorothiazide 1 tab PO DAILY 06/10/21 02/16/24 History 12.5 mg tablet nicotine (polacrilex) 4 mg buccal 4 mg buccal Q8H PRN 06/10/21 02/16/24 History lozenge (Nicorette) amlodipine 10 mg tablet 10 mg PO DAILY 02/16/24 02/16/24 History Exam Narrative Exam Narrative: Head eyes ears nose and throat: Normocephalic atraumatic mucous membranes moist oropharynx is clear extraocular motions are intact. Patient has a symmetrical smile is able to raise her eyebrows Neck: No lymphadenopathy no JVD no thyroid megaly I cannot preappreciate bruits Cardiovascular: Regular rate and rhythm no murmur rubs or gallops Lungs: Bilateral wheeze worse on expiration Abdomen: Soft nontender nondistended bowel sounds active Extremities: 5 out of 5 strength bilaterally in upper extremities 5 out of 5 strength in right lower extremity and 4 out of 5 strength in left lower extremity with dorsiflexion Psych: Alert and can give a linear history. General: Patient does have some word finding difficulties and her speech has a low eron Neurologic: Cranial nerves II through XII are within normal limits as tested she does have some bilateral past-pointing Results Labs 02/16/24 11:34 02/16/24 11:34 Labs: Laboratory Results - last 24 hr 02/16/24 02/16/24 02/16/24 11:34 12:36 14:34 WBC 7.50 RBC 5.16 Hgb 16.3 H Hct 48.5 H MCV 94 MCH 31.6 MCHC 33.6 RDW 12.3 Plt Count MPV Immature Gran % 0.3 Neutrophils % 55.3 Lymphocytes % 23.5 Monocytes % 6.5 Eosinophils % 13.9 Basophils % 0.5 Nucleated RBC % 0.0 Absolute Neutrophils 4.15 Absolute Lymphocytes 1.76 Absolute Monocytes 0.49 Absolute Eosinophils 1.04 H Absolute Basophils 0.04 PT 10.4 INR 1.0 APTT 23.9 Sodium 136 Potassium 4.5 Chloride 100 Carbon Dioxide 30.2 Anion Gap 5.8 BUN 10 Creatinine 0.9 Est GFR (CKD-EPI 2020) 69.20 Glucose 105 Calcium 9.1 Magnesium 1.8 Total Bilirubin 0.84 AST 48 H ALT 81 H Alkaline Phosphatase 93 Troponin I 8 8 Cancelled Total Protein 7.8 Albumin 4.2 TSH 1.27 Last Vital Signs Pulse 63 02/16/24 14:01 Resp 21 02/16/24 14:01 BP 158/59 H 02/16/24 14:01 Pulse Ox 94 02/16/24 14:01 Time Spent Time spent with Patient: 40-54 minutes Time was spent: preparing to see the patient(eg.review tests), obtaining and/or reviewing separately otained hiistory, ordering medications,tests, procedures, referring, communicating with other health care trainer, indepentently interpreting results, counseling the patient and care coordination
--- NOTE | 2024-02-16 15:03 | W.PC.ACHO ---
Registration Status: Primary Language: Preferred Language: ED Information & Data Chief Complaint CVA/TIA 02/16/24 13:01 Chief Complaint CVA/TIA 02/16/24 11:49 Triage Note Cisne unwell last night with 02/16/24 11:23 speech changes around 1930, this morning woke up and speech was worse. h/o htn. Medical / Surgical History (Last Updated 04/13/18 @ 09:30 by Itzel Zimmerman MD) Ptosis Trochanteric bursitis Hypertension Diverticulosis Tobacco use Elevated blood pressure reading (Last Updated 04/13/18 @ 09:30 by Itzel Zimmerman MD) fibroid removal Vaginal hysterectomy Colonoscopy - MAC (01/04/17) Appendectomy Most Recent Vital Signs Pulse 63 02/16/24 15:01 Pulse 66 02/16/24 14:01 Respiratory Rate 21 02/16/24 15:01 Blood Pressure 158/59 H 02/16/24 15:01 Blood Pressure Mean 90 02/16/24 14:01 Blood Pressure Position Sitting 02/16/24 11:23 Pulse Oximetry 94 02/16/24 15:01 Oxygen Delivery Method Room Air 02/16/24 11:23 Oxygen Flow Rate 0 02/16/24 11:23 Allergies Penicillins Allergy (Severe, Verified 06/23/21 08:44) Swelling/Edema Sulfa (Sulfonamide Antibiotics) Allergy (Severe, Verified 06/23/21 08:44) Swelling/Edema codeine Allergy (Intermediate, Verified 06/23/21 08:44) hives nitrofurantoin (From Macrobid) Adverse Reaction (Intermediate, Verified 06/23/21 08:44) Nausea nitrofurantoin macrocrystalline (From Macrobid) Adverse Reaction (Intermediate, Verified 06/23/21 08:44) Psychosis varenicline (From Chantix) Adverse Reaction (Intermediate, Verified 06/23/21 08:44) Psychosis Active Medications Generic Name Dose Route Start Last Admin Trade Name Freq PRN Reason Stop Dose Admin Iohexol 70 ml 02/16/24 11:45 02/16/24 11:40 Omnipaque 350 Mg/Ml 100 Ml Btl IJ 03/17/24 23:59 70 ml DIRECTED JOCE Administration Sodium Chloride 50 ml 02/16/24 11:45 02/16/24 11:39 Normal Saline - Diluent 50 Ml Vial IJ 50 ml .FOR DI USE JOCE Administration IV IV Catheter Type [Right Peripheral IV Antecubital] IV Catheter Gauge [Right 18 Antecubital] Diet Orders Category Date Time Status Regular/Normal [DIET] Nutrition 02/16/24 Dinner Active Diagnostics 02/16/24 02/16/24 02/16/24 Range/Units 17:20 15:20 14:34 WBC (4.4-10.8) 10^3/uL RBC (3.93-5.22) 10^6/uL Hgb (11.2-15.7) g/dL Hct (36.0-46.0) % MCV (80-95) fL MCH (27.0-33.0) pg MCHC (32.0-36.0) % RDW (11.7-14.6) % Plt Count (130-400) 10^3/uL MPV (8.0-11.0) fL Immature Gran % % Neutrophils % % Lymphocytes % % Monocytes % % Eosinophils % % Basophils % % Nucleated RBC % (0.0-0.3) % Absolute Neutrophils (1.2-6.7) 10^3/uL Absolute Lymphocytes (1.2-3.4) 10^3/uL Absolute Monocytes (0.1-0.8) 10^3/uL Absolute Eosinophils (0.0-0.7) 10^3/uL Absolute Basophils (0.0-0.2) 10^3/uL PT (9.1-11.1) sec INR (0.9-1.1) APTT (23.6-32.8) sec Sodium (136-145) mmol/L Potassium (3.5-5.1) mmol/L Chloride (98-107) mmol/L Carbon Dioxide (21.0-32.0) mmol/L Anion Gap (3-11) mmol/L BUN (7-18) mg/dL Creatinine (0.55-1.02) mg/dL Est GFR (CKD-EPI 2020) (mL/min/1.73m2) Glucose (74-106) mg/dL Calcium (8.5-10.1) mg/dL Magnesium (1.8-2.4) mg/dL Total Bilirubin (0.2-1.0) mg/dL AST (15-37) U/L ALT (14-59) U/L Alkaline Phosphatase (46-116) U/L Troponin I Pending Pending Cancelled (<or=51) ng/L Total Protein (6.4-8.2) g/dL Albumin (3.4-5.0) g/dL TSH (0.36-3.74) uIU/mL 02/16/24 02/16/24 Range/Units 12:36 11:34 WBC 7.50 (4.4-10.8) 10^3/uL RBC 5.16 (3.93-5.22) 10^6/uL Hgb 16.3 H (11.2-15.7) g/dL Hct 48.5 H (36.0-46.0) % MCV 94 (80-95) fL MCH 31.6 (27.0-33.0) pg MCHC 33.6 (32.0-36.0) % RDW 12.3 (11.7-14.6) % Plt Count (130-400) 10^3/uL MPV (8.0-11.0) fL Immature Gran % 0.3 % Neutrophils % 55.3 % Lymphocytes % 23.5 % Monocytes % 6.5 % Eosinophils % 13.9 % Basophils % 0.5 % Nucleated RBC % 0.0 (0.0-0.3) % Absolute Neutrophils 4.15 (1.2-6.7) 10^3/uL Absolute Lymphocytes 1.76 (1.2-3.4) 10^3/uL Absolute Monocytes 0.49 (0.1-0.8) 10^3/uL Absolute Eosinophils 1.04 H (0.0-0.7) 10^3/uL Absolute Basophils 0.04 (0.0-0.2) 10^3/uL PT 10.4 (9.1-11.1) sec INR 1.0 (0.9-1.1) APTT 23.9 (23.6-32.8) sec Sodium 136 (136-145) mmol/L Potassium 4.5 (3.5-5.1) mmol/L Chloride 100 (98-107) mmol/L Carbon Dioxide 30.2 (21.0-32.0) mmol/L Anion Gap 5.8 (3-11) mmol/L BUN 10 (7-18) mg/dL Creatinine 0.9 (0.55-1.02) mg/dL Est GFR (CKD-EPI 2020) 69.20 (mL/min/1.73m2) Glucose 105 (74-106) mg/dL Calcium 9.1 (8.5-10.1) mg/dL Magnesium 1.8 (1.8-2.4) mg/dL Total Bilirubin 0.84 (0.2-1.0) mg/dL AST 48 H (15-37) U/L ALT 81 H (14-59) U/L Alkaline Phosphatase 93 (46-116) U/L Troponin I 8 8 (<or=51) ng/L Total Protein 7.8 (6.4-8.2) g/dL Albumin 4.2 (3.4-5.0) g/dL TSH 1.27 (0.36-3.74) uIU/mL [id number] Documentation Fingerstick Glucose Start: 02/16/24 11:28 Freq: Status: Complete Protocol: Activity Type Activity Date Activity User E-sign Co-sign Detail Recorded Client Recorded Date Recorded By Document 02/16/24 11:26 BKG DAEMON(10) [id number] 02/16/24 11:28 BKG DAEMON(10) Intake and Output - 24 Hour Total 02/16/24 11:20 thru 02/16/24 11:23 Weight 79.832 kg Falls Risk Assessment History of Falls No History 02/16/24 15:01 Contributing Factors No Factors 02/16/24 15:01 Ambulatory Aids Independent 02/16/24 15:01 Tubes/Lines None 02/16/24 15:01 Gait Evaluation No gait disturbance 02/16/24 15:01 Cognition No cognitive impairment 02/16/24 15:01 Fall Total Score 0 02/16/24 15:01 Level of Risk Standard/Low Risk 02/16/24 15:01 Problems (Last Updated 04/13/18 @ 09:30 by Itzel Zimmerman MD) Left-sided cerebrovascular accident (CVA) (Acute) Emphysema lung (Acute) v v v v v v v v v Sending and/or Receiving Nurses: Please use comment section below to note any information pertinent to the patient hand-off not included above. Information / Comments: report recieved. Report received from: Bonilla Lynch at 1500
[2024-02-16] MEDS: Enoxaparin 40 MG/0.4 ML SYR SC (15:41)
[2024-02-16] MEDS: Nicotine 7 MG/24 HR PATCH TD (15:42)
[2024-02-16 15:59] LABS: Troponin I 10 ng/L (<or=51)
[2024-02-16 18:06] LABS: Troponin I 11 ng/L (<or=51)
[2024-02-16] MEDS: Normal Saline Flush 10 ML SYR IVP (20:41)
[2024-02-16] MEDS: Acetaminophen 325 MG TAB 650 MG PO (23:41)
--- NOTE | 2024-02-17 | DI.MRI_ITS ---
Exam(s) MR BRAIN WO EXAM: MR BRAIN WO CLINICAL HISTORY: cva TECHNIQUE: Multiplanar multisequence MRI of the brain was performed. COMPARISON: CT CT BRAIN NECK CTA from 02/16/2024 FINDINGS: CEREBRAL PARENCHYMA: There are multiple foci of restricted diffusion in the left hemisphere, the most posterior being in t he left occipital parietal region and corresponding to the area of gyral enhancement on yesterday's C T scan. Also foci of restricted diffusion are noted more anteriorly in the territory of the left mid dle cerebral artery in the region around the sylvian fissure and also more superiorly in the left par ietal lobe There is no restricted diffusion in the opposite-right side of the brain nor within the cerebellar he mispheres. There is no evidence of intracranial hemorrhage. Ventricular size is normal There also smaller Kerrie in supra ventricular foci of white matter signal abnormality bilaterally whic h are not associated with hemorrhage, surrounding edema, nor restricted diffusion. SWI: No microhemorrhages evident PITUITARY GLAND: No mass nor parasellar abnormality. No obvious abnormality in the cavernous sinuses. FLOW VOIDS: The expected flow void are noted. No evidence of obvious aneurysm nor obvious vascular ma lformation. PARANASAL SINUSES: Tiny amount of fluid is noted in the right maxillary sinus. ORBITS: No obvious findings. IMPRESSION: There are multiple abnormal foci of restricted diffusion in the left side of the brain, the most post erior being in the left occipital parietal region, corresponding to the area of abnormality discussed on yesterday CT scan. Other similar areas of abnormal restricted diffusion are seen in the territor y of the left middle cerebral artery as well as higher up in the left frontal and parietal lobes. Th kofi findings are consistent with nonhemorrhagic infarcts, possibly embolic given the findings in the left carotid artery in the neck seen on yesterday's CT angiogram study. There are no infarcts in the right-side of the brain nor in the posterior fossa-cerebellar hemisphere s. DATA REPOSITORY:
[2024-02-17 04:20] VITALS: BP 154/63; PULSE 66; RESP 18; TEMP 36.1; O2SAT 93
[2024-02-17 06:52] LABS: HCT 40.2 % (36.0-46.0); MCHC 34.8 % (32.0-36.0); MCV 92 fL (80-95); MPV 10.4 fL (8.0-11.0); Platelet Count 157 10^3/uL (130-400); RBC 4.37 10^6/uL (3.93-5.22); RDW 12.1 % (11.7-14.6); RDW-SD 40.8 fL; WBC 5.88 10^3/uL (4.4-10.8)
[2024-02-17 07:00] LABS: INR 1.1 (0.9-1.1); Prothrombin Time 10.8 sec (9.1-11.1)
[2024-02-17 07:15] VITALS: BP 134/63; PULSE 70; RESP 15; TEMP 36.1; O2SAT 88
[2024-02-17 07:17] LABS: Calculated LDL 102 mg/dL (<100); Cholesterol 206 mg/dL (<200); HDL Cholesterol 77 mg/dL (40-60); Triglyceride 135 mg/dL (<150)
--- NOTE | 2024-02-17 07:37 | DI.US_ITS ---
APPROVED REPORT EXAM: Comprehensive 2D, Doppler, and color-flow Echocardiogram Patient Location: In-Patient Room/Bed: [facility] Professor Of Visual Arts: Justine Dasilva RDCS (AE) Indications: CVA Echo Enhancing Agent Indication: Rule out Shunt Agent(s) / Amount(s) Used: Agitated Saline 30.0 cc Comments: Contrast study was performed with 3 IV injections of 10ccs of agitated normal saline, at [facility], with cough and post valsalva maneuver. Negative contrast study for shunt flow. Other Information Study Quality: Fair. Technically limited study due to body habitus. Conclusion Normal left ventricular wall thickness and chamber size. Ejection fraction is 55%. Wall motion is n ormal Normal right ventricular size and function Both atria are normal in size No intracardiac shunting is identified with injection of agitated saline There are no structural valvular abnormalities Estimated right ventricular systolic pressure is 45 mmHg Wall motion Left Ventricle The left ventricle is normal size. The overall left ventricular systolic function appears normal. Th ere is normal left ventricular wall thickness. There is normal LV segmental wall motion. There is no ventricular septal defect visualized. LVEF is 55%. Right Ventricle Right ventricle is grossly normal in size. Right ventricular systolic function is grossly normal. Atria The left atrium size is normal. The right atrium size is normal. The interatrial septum is intact wit h no evidence for an atrial septal defect. Saline bubble contrast intravenous injection does not demo nstrate PFO. Aortic Valve The aortic valve is normal in structure. Aortic valve is trileaflet. There is no aortic valvular sten osis. No aortic regurgitation is present. Mitral Valve The mitral valve is normal in structure. No evidence of mitral valve stenosis. Trace mitral regurgita tion. Tricuspid Valve The tricuspid valve is normal in structure. There is no tricuspid valve stenosis. Trace tricuspid reg urgitation. The RVSP is 45.4 mmHg. Pulmonic Valve The pulmonary valve is normal in structure. There is no pulmonic valvular stenosis. Trace pulmonic re gurgitation. Great Vessels The aortic root is normal in size. The ascending aorta is borderline dilated. Aortic arch is not well visualized. IVC is normal in size and collapses >50% with inspiration. Pericardium There is no pericardial effusion. 2D Dimensions IVSD d PLAX 0.90 cm F: 0.6-1.0 Ao Root d 2.68 cm F: 2.7 - 3.3 LVPW d PLAX 0.94 cm F: 0.6 - 1.0 Ao Asc Diam d 3.39 cm F: 2.3 - 3.1 LVID d PLAX 4.06 cm F: 3.8 - 5.2 LVDs 2.91 cm F: 2.2 - 3.5 LV EF Teichholz 55.2 % FS 28.30 % LV EDV (Teich) 72.4 mL LV ESV (Teich) 32.5 mL M-Mode TAPSE 2.23 cm (M/F) >1.7 Auto EF LV EDV A4C 120.7 mL LV EDV A2C 106.9 mL LV EDV BP 113.8 mL LV ESV A4C 60.0 mL LV ESV A2C 47.6 mL LV ESV BP 53.4 mL LVEF(%) A4C 50.3 % LVEF(%) A2C 55.5 % LVEF(%) BP 53.1 % LV SV A4C 60.7 ml LV SV A2C 59.3 ml LV SV BP 60.4 ml LV CO A4C 3.8 L/min LV CO A2C 3.9 L/min LV CO BP 3.8 L/min HR A4C 62.05 BPM HR A2C 66.18 BPM LV EDV Index (BP) LA Volume LA Length A4C 5.6 cm LA Length A2C 4.5 cm LA Area A4C s 18.36 cm2 LA Area A2C s 15.73 cm2 LA Vol A4C A-L 51.36 mL LA Vol A2C A-L 46.74 mL LA Vol Biplane A-L 54.6 mL LA Vol/BSA A4C A-L LA Vol/BSA A2C A-L LA Vol/BSA BP A-L 30.2 mL/m2 LA Vol A4C MOD 47.1 mL LA Vol A2C MOD 44.1 mL LA Vol BP MOD 50.6 mL RA Volume RA Area A4C 9.3 cm2 RA ESV A4C (A-L) 21.9mL RA Vol/BSA A4C A-L RA Length A4C 3.3 cm RA ESV A4C (MOD) 20.7mL LV Diastology MV E' medial 0.067 (>0.07 m/s) MV E Vmax 0.85 (0.4-1.3 m/s) MV E/E' MED 12.72 (<14) MV A Vmax 1.05 (0.4-1.3 m/s) MV E' lateral 0.072 (>0.1 m/s) E/A Ratio 0.8 MV E/E' LAT 11.77 (<14) MV E' Average 0.069 m/s MV E/E'(average) 12.23 Aortic Valve AoV Vmax 1.34 m/s LVOT Vmax 1.25 m/s AoV Peak Grad 7.1 mmHg LVOT Peak Grad 6.2 mmHg AoV Area (Vmax) 2.48 cm2 LVOT VTI 0.248 m AoV VTI 0.306 m LVOT Mean Grad 2.9 mmHg AoV Mean Rudy. 0.87 m/s LVOT SV 65.63 mL AoV Mean Grad 3.5 mmHg LVOT Diam s 1.80 cm AoV Area (VTI) 2.14 cm2 AV Regurg Peak Gr. 7.13 mmHg Velocity Ratio 0.93 Mitral Valve MV DT 187 (160-240 msec) MV Vmax TIPS 1.00 m/s MV Mean Grad 1.7 (<2mmHg) MV VTI 0.347 m Pulmonary Valve PV Vmax 0.87 (0.5-1.5 m/s) RVOT Vmax 0.91 m/s PV Peak Grad 3.0 mmHg RVOT Peak Gr. 3.3 mmHg PV Mean Rudy 0.60 m/s RVOT VTI 0.169 m PV Mean Grad 1.6 mmHg RVOT Mean Gr. 1.3 mmHg Tricuspid Valve RA Pressure 3.00 mmHg TR Vmax 3.26 m/s TV S' 0.13 m/s TR Peak Grad 42.3 mmHg RVSP (TR) 45.4 mmHg
[2024-02-17 07:40] LABS: Troponin I 11 ng/L (<or=51)
[2024-02-17] MEDS: Cholecalciferol (Vitamin D3) 1,000 UNIT TAB 1000 UNITS PO (09:04)
[2024-02-17] MEDS: Normal Saline Flush 10 ML SYR IVP (09:06)
[2024-02-17] MEDS: Acetaminophen 325 MG TAB 650 MG PO (09:06)
--- NOTE | 2024-02-17 09:39 | PT.INIE ---
PT Notes Visit Reasons: Cerebrovascular accident Physical Therapy Initial Evaluation Date: 02/16/2024 Referring Doctor: Dr. Carlton PT Orders: PT CONSULT: Evaluation and treatment Precautions: IV access right upper extremity, fall risk, standard precautions Patient Profile/Admitting Diagnosis: Patient is 68-year-old female presented to the ED on 02/16/2024 after noting difficulty with speech on 02/15/2024 however she went to bed and woke with worsening symptoms. Patient reported intermittent right upper extremity weakness and a headache times one [address] scan revealed left occipital lobe hypodensity consistent with nonhemorrhagic infarct and carotid artery stenosis. Patient had a telemetry neuro consult completed with [facility] who reviewed imaging and concurred with diagnosis of left CVA. Neuro also had concern for possible frontal lobe infarct secondary to language deficits. Neuro recommended MRI, echo and continued telemonitoring. Patient was transferred to the Medr unit for ongoing medical management including MRI and echo to be completed today. PT consulted for assessment of mobility. PMHX: Stroke (Chronic) Left-sided cerebrovascular accident (CVA) (Acute) De Quervain's tenosynovitis (Acute) left wristEmphysema lung (Acute) S/P laparoscopic cholecystectomy (Acute ~04/13/18) Recurrent biliary colic (Acute) Gallstones (Acute) Medical History (Updated 02/16/24 @ 14:11 by Yogi Ojeda DO) Ptosis Trochanteric bursitis Hypertension Diverticulosis Tobacco use Elevated blood pressure reading Surgical History (Updated 04/13/18 @ 09:30 by Itzel Zimmerman MD) fibroid removal Vaginal hysterectomy Colonoscopy - MAC (01/04/17) Appendectomy Social History/Home Situation: Patient resides in single-family single-story home with her with one-step to enter without rail. Patient notes steep walkway from driveway to house. She is independent with ADLs, cooking, homemaking, IADLs, med management. 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 Patient wears glasses for distance. Equipment Owned/DME: None Subjective: Patient reports she is feeling well but tired. She reports she did not sleep well last night and stated nurse notified her that her oxygen level dropped during the night. She reports this is new and she was unaware of this prior to hospitalization. Objective: General Observation: Female presented seated in chair with feet down, visiting, telemetry in place. Patient agreeable to participate in evaluation Mental Status: Alert and oriented, word finding deficits/expressive aphasia dysarthric speech at times patient able to pause and then state word with clarity. Pain: Denies Vitals: 134/63, 71 bpm., O2 sat 96% after ambulation ROM: Right Upper Extremity: WNL Left Upper Extremity: WNL Right Lower Extremity: WNL Left Lower Extremity: WNL Strength: Right Upper Extremity: 4/5 grasp equal though pt reports it is usually stronger than her left Left Upper Extremity: 5/5 Right Lower Extremity: hip flexion 3+/5,hip abduction3+/5, hip extension 3+/5, knee extension 4-/5,knee flexion 3+/5, ankle 4-/5 Left Lower Extremity: 5/5 Sensation: Intact Coordination; decreased accuracy with [id number] on right as compared to left; rapid alternating movements with decreased speed upper extremity, decreased speed and excursion of right lower extremity with toe tapping. [id number] normal Vision: Reduced right peripheral requiring head turn to locate object Bed Mobility/Transfers: Supine to sit independent Sit to stand independent Stand to sit independent Bed to chair independent Gait: Patient ambulated 300 feet without assistive device on level surfaces including turns with supervision cues for direction. Patient demonstrated reciprocal pattern noted 1 crossover step with return to the right able to regain without assistance. Stairs 4 steps with 2 rails supervision reciprocal pattern Balance: [] Static Sitting: Normal Dynamic Sitting: Normal Static Standing: Normal Dynamic Standing: Good Special Tests: 4 STAGE BALANCE TEST: Feet together 10 seconds 1/2 Stance 10 seconds Tandem stance : right leg forward 10 seconds; left leg forward 10 sec ( increase use of Ue for stabilizing balance when left leg forward, arms with increased abduction) Single leg stance left 10 seconds, right 8 seconds increase use of BUE for stabilizing Mobility Limitations Standardized Measure [] [facility] 6 clicks Basic Mobility Inpatient Short Form: [] Raw Score: 23 CMS Score: 11.20% Informed Consent/Education: Patient instructed in purpose of PT consult. Assessment: Xuan is a 68 yo female presenting with expressive and ? receptive aphasia, word finding deficits and dysarthria . Pt demonstrates slight RLE strength impairments, impaired ankle and hip strategies on the right for balance recovery, diminished finger to nose accuracy on right and visual deficit on the right. Pt denies loss of vision however pt did not locate room on the right despite instruction it was the 2nd door on the right . Pt thought room was further down the rabago at the next room. Pt would benefit from further visual testing. Due to mild impairments in balance and right sided weakness/ motor control pt wuold benefit from outpatient PT to maximize strength and facilitate balance reeducation to reduce risk for falls. Patient is assessed as a moderate complexity based on the following: History:68-year-old female with impairment level findings, functional limitations, and past medical history as indicated above Examination: Demonstrable impairment in strength, balance, and mobility level with underlying impairments and functional limitations as documented above Presentation: evolving Decision Making: moderate Goals: 1. Independent with standing HEP 2. Independent on 2 stairs with out railing 3. perform SL stance for > 20 sec R and LLE indicating enhanced motor control and reduced risk for falls. Plan of Care/Treatment Plan: 1-2x/day, 7 days/week x 1 week. Plan of care has been reviewed with the CLIENT SERVICES ACCOUNT MANAGER providing the service under Physical Therapy direction. Initiate Physical Therapy intervention for strengthening, bed mobility, transfers, gait, stairs, balance training, use of assistive device. DISCHARGE RECOMMENDATIONS: Home with outpatient PT TREATMENT CODE/TIME: 26883/0910?[id number] Thank you for the opportunity to participate in the care of this patient. Aditi Nelson PT [facility]
--- NOTE | 2024-02-17 10:34 | SP_ITS ---
Date of service: 02/17/24 Time of Service: 08:30 Subjective Clinical (Bedside) Swallow Evaluation Speech Language Pathology Referred by: Jemal Carlton Referral Type: Clinical Swallow Evaluation & Aphasia Evaluation Reason for Referral/HPI: Xuan Zapata is a 68 yo female with PMH significant for HTN, emphysema, nicotine abuse who was adm to [facility] 02/16/24 with suspected CVA. She began experiencing difficulty with word retrieval 02/14 though did not arrive to ED until morning of 02/[address] revealed L occipital lobe hypodensity consistent with nonhemorrhagic infarct. She is pendin g MRI. Xuan denies swallowing symptoms but notes she is having a hard time finding words as well as following longer directions. She notes her speech is 'much improved' today compared to yesterday. CLINICAL RESEARCH ASSISTANT IMPRESSIONS DYSPHAGIA: Xuan did not demonstrate any overt s/s oral pharyngeal dysphagia during her breakfast meal. Of notice, she does demonstrate a wet cough several minutes after her breakfast, which she states is baseline due to her emphysema. Recommend continue regular diet/thin liquids with standard post-stroke aspiration precautions in place as outlined below. Will continue to monitor for dysphagia needs. CLINICAL RESEARCH ASSISTANT IMPRESSIONS APHASIA: Xuan presents with at least mild expressive aphasia and question of receptive aphasia vs cognitive-communication impairment. Her expressive language is clear with intact syntax, slowed rate and intermittent pausing d/t anomia. Repetition and reading aloud are fully intact. In conversation Xuan was 100% intelligible and efficient in communicating wants/needs, though noted to speak at slower rate and demonstrate intermittent paraphasias that she typically was able to self-correct (You can sit on the desk...the bed). Xuan was able to follow simple instructions without difficulty, though had more difficulty with multi-step commands. With clock drawing task, she was able to write in the numbers appropriately but set the hands to the incorrect time. Further diagnostic treatment would be beneficial in receptive language and cognitive-communication areas. FURTHER CLINICAL RESEARCH ASSISTANT SERVICES: Patient to be followed while on unit. Upon Discharge, ongoing CLINICAL RESEARCH ASSISTANT services indicated. Recommend rehab vs home health vs outpatient- pending OT/PT needs. Diet Recommendations: SOLIDS: L7 Regular LIQUIDS: L0 Thin Liquids MEDICATIONS: As tolerated SUPERVISION: Distant/Intermittent PRECAUTIONS: - Sit bolt upright 90 degrees with meals, in a chair preferred - Stay upright at least 30 minutes following a meal - Small/slow bites and sips - Oral hygiene BID SUBJECTIVE: Patient received alert/awake, oriented to self/situation/location/month/date/year, agreeable to evaluation Pain Reported? None Baseline Swallow Function: Patient denies swallowing difficulty prior to admission and eats a regular diet at baseline. PO Trials Assessed: IDDSI 0 Thin Liquids (juice, coffee) IDDSI 7EC Easy to Chew Solid (georgian toast, scrambled eggs) Oral Mechanism Examination: Dentition is WFL, some missing dentition Oral mucosa is WFL. Cranial Nerve Assessment: CN V ? Trigeminal Facial Sensation WNL Jaw Strength/ROM WNL ?WNL CN VII- Facial WNL labial ROM, strength, coordination. WNL lingual sensation WNL CN IX ? Glossopharyngeal WNL palatal elevation with phonation. No evidence of nasal emissions WNL CN X ? Vagus WNL Vocal quality and volume. Strong/sharp volitional cough WNL CX XII ? Hypoglossal WNL lingual ROM, strength, coordination WNL Oral Phase Findings: WFL Pharyngeal Phase Findings: WFL Single swallow per bite/sip No immediate coughing/throat clearing/change in vocal quality Very wet cough noted several minutes after meal, d/t baseline emphysema per pt APHASIA ASSESSMENT: COOKIE THEFT PICTURE: A family...boy and girl getting cookies. mowing, no, doing dishes and mowing lawn while talking on the phone. There's cats, dogs, neighborhoods. Clinician prompt- anything unusual about this picture? The little building, square building. And of course the suds falling over the.....sink QUICK APHASIA BATTERY (WAB): Word Comprehension = 100%, 32/32 Sentence Comprehension = 42/48 Word Finding = 100%, /24 Grammatical Constructions = 100%, / Motor Speech = Repetition = 100%, Reading = READING ALOUD- RAINBOW PASSAGE: Slowed rate, intermittent pausing. No word substitutions. Speech is clear. CLOCK DRAWING: Accurately vianey [place] & numbers Error with with time: instruction was 10 minutes to 11. Pt vianey 10:00. When asked what time she vianey, she stated 10 minutes to 12 CONVERSATIONAL OBSERVATIONS: You can sit on my de- (desk) bed I'm waiting on the M.... yeah (MRI) My right eye seems a little..... (Clinician- Blurry?). Yes. Well, no. Seems a little...not today...yesterday...it was....smushed down ASSESSMENT: Further CLINICAL RESEARCH ASSISTANT Services indicated. Patient to be followed while on unit. Recommendation at Discharge: CLINICAL RESEARCH ASSISTANT Services at Long-Term Facility vs CLINICAL RESEARCH ASSISTANT Services via Home Health vs CLINICAL RESEARCH ASSISTANT Outpatient Services, to be determined pending OT/PT needs Suggested Referrals: N/A Recommended Procedures: N/A Recommendations: ? Education Provided to: Nursing, Patient, Family Topics Addressed: CLINICAL RESEARCH ASSISTANT findings, stroke recovery, rehab recommendations PLAN: Frequency: 2-3x/week for 1-2 weeks Goals: Care Home Goals: Patient will remain free from aspiration-related illness, malnutrition, and dehydration. Patient/family will verbalize comprehension of education provided re: dx aphasia strategies to maximize functioning, and role of ST. Short Term Goals: Patient will participate in ongoing diagnostic treatment addressing areas of receptive language and cognitive communication Patient will tolerate regular Diet and Thin liquids without overt s/s aspiration across 2/2 visits. CLINICAL RESEARCH ASSISTANT CPT Code: 54657 Clinical Swallowing Evaluation [phone], 10 min 26743?Evaluation of speech sound production [phone], 25 min TOTAL TIME: 35 Minutes
[2024-02-17] MEDS: Aspirin E.C. 81 MG TABEC PO (12:14)
[2024-02-17] MEDS: Clopidogrel 300 MG TAB PO (12:14)
[2024-02-17 12:25] VITALS: BP 145/77; PULSE 65; RESP 16; TEMP 36.4; O2SAT 93
--- NOTE | 2024-02-17 12:56 | PDOC.CMDIS ---
Date of service: 02/17/24 Time of Service: 12:56 LACE Index Scoring Tool Questions: Length of Stay (in days): 1 Was the patient admitted via the E.D.?: Yes Comorbidities: Cerebrovascular Disease E.D. Visits: 1 Answers: Total Score: 6 Risk of Readmission: Low Risk Care Management Discharge Plan Reason for Hospitalization: CVA Discharge Plan: Xuan will discharge home via private vehicle with . Orders for new HH PT/ST will be sent to [facility]. Follow up with community providers and discharge plan of care as recommended. Patient/Family Education Needs: Review discharge instructions, limitations and plan to follow up with PCP. Discuss ask me three. Services Needed at Discharge: Home Health Care Services (new HH PT/ST will be sent to [facility].) SDOH Health Related Social Needs: No Data to Display
[2024-02-17] MEDS: Nicotine 7 MG/24 HR PATCH TD (12:59)
--- NOTE | 2024-02-17 13:00 | PDOC.CMIN ---
Date of service: 02/17/24 Time of Service: 13:00 Care Management Initial Assmt Initial Assessment Reason for Hospitalization: CVA Functional Status/Living Situation Patient Presentation: Xuan was lying in bed trying to get some rest when CM met with her. Her coppersmith apprentice Obie is present and sitting in a recliner. PT/OT evals are completed and New [facility] PT/ST services are recommended. Further medical workup and imaging is being done. She is currently waiting to have an MRI. Town of Residence: [facility] Resides with: Spouse (Complanion) Significant Other/Family: Local Employment Status: Retired Instrumental Activities of Daily Living (ADLs): Independent Medications Medication Management: No Issues/Barriers identified Physical Functioning/Mobility Assistive Device: None Advance Directives Advance Directives: Do you have an Advance Directive: N 06/28/12 15:48 AD On File at [facility]: N 06/28/12 15:48 Date Asked 02/16/24 02/16/24 11:26 AD Date Reviewed COLST On File at [facility] COLST Date Scanned Code Status Resuscitation Status Full Code Portal Pt does not currently have a portal and education provided: Yes Insurance Coverage/Financial Issues Insurance: /[facility] Financial Issues: None identified Care Team Visit Care Team Role Provider Type Meak Baltazar Primary Care Provider NURSE PRACTITIONER Tamara Ford, FABRICATION MANAGER Other Providers SPEECH LANGUAGE PATHOLOGIST Eva Green, FABRICATION MANAGER Other Providers SPEECH LANGUAGE PATHOLOGIST Geovanna Gil Other Providers SPEECH LANGUAGE PATHOLOGIST Shari Escobedo, FABRICATION MANAGER Other Providers SPEECH LANGUAGE PATHOLOGIST Christina Luis, FABRICATION MANAGER Other Providers SPEECH LANGUAGE PATHOLOGIST Camden Georges Other Providers OTHER Yogi Ojeda DO Emergency Provider [facility] STAFF PHYSICIAN Jemal Carlton MD Admit Provider [facility] STAFF PHYSICIAN Attending Provider Discharge Potential Discharge Needs: PCP F/U Appt Anticipated Barriers to Discharge: Medical Status Patient/Family Education Needs: Review discharge instructions, discuss Ask Me Three Transportation: Private vehicle Plan: Further medical workup is being done for a Left sided CVA. PT/ST evals are complete and HH services are recommended. Xuan will discharge home via private vehicle with her coppersmith apprentice Obie when she is medically cleared for discharge. [facility] PT/ST orders will be sent to the [facility] if patient is agreeable. CM will continue to follow. Social Determinants of Health Screening Will the Patient Participate in the Screening?: Declined to provide PFSH All Active Problems (Updated 02/16/24 @ 14:11 by Yogi Ojeda DO) Stroke (Chronic) Left-sided cerebrovascular accident (CVA) (Acute) De Quervain's tenosynovitis (Acute) left wrist Emphysema lung (Acute) S/P laparoscopic cholecystectomy (Acute ~04/13/18) Recurrent biliary colic (Acute) Gallstones (Acute) Medical History (Updated 02/16/24 @ 14:11 by Yogi Ojeda DO) Ptosis Trochanteric bursitis Hypertension Diverticulosis Tobacco use Elevated blood pressure reading Surgical History (Updated 04/13/18 @ 09:30 by Itzel Zimmerman MD) fibroid removal Vaginal hysterectomy Colonoscopy - MAC (01/04/17) Appendectomy Social History Smoking/Tobacco Use Status: Current every day Smoking risk assessment performed?: Yes Alcohol Intake: current Alcohol Intake frequency: a few times a week Drug use: Never Substance use type: does not use Housing: house
--- NOTE | 2024-02-17 14:43 | PT.INTREAT ---
PT Notes Visit Reasons: Cerebrovascular accident Inpatient Physical Therapy Treatment Note [facility] Date: 02/17/2024 PRECAUTIONS:Standard SUBJECTIVE: pt reports she is tired ( word finding deficits noted with some dysarthria) OBJECTIVE: pt presented sidelying in bed with partner visiting? PAIN: denies Therapeutic Activities (34563): Direct one-on-one instruction in dynamic activities to improve functional performance. ?? Provided skilled cues and instruction on performance and technique throughout. Patient education regarding pacing and breathing techniques to maximize activity tolerance? BED MOBILITY/TRANSFERS? independent with bed mobility including rolling repositioning and supine to from sit Transfers: SBA without device various surfaces x 4 trials ? Facilitated safe and correct performance of level surface ambulation covering a distance of 200 feet without device with SBA including turns and obstacle management within environment to locate items. Did not report of any increased pain. Denied headache, chest pain, and lightheadedness throughout activity. ? ASSESSMENT:?Pt able to perform functional mobility without device and without LOB. Pt wilma to perform dynamic balance in stand without LOB including reaching bending item retrieval and transport. Pt able to locate items within room without cueing. Pt demonstrating ability to scan environment to locate tasks. Discussed with pt and partner bnefits of Out patient PT to progress with Right sided deficits and facilitate balance reactions/coordination. PLAN: 1-2x/day, 7 days/week x 1 week. Plan of care has been reviewed with the FASHION DIRECTOR providing the service under Physical Therapy direction. Initiate Physical Therapy intervention for strengthening, bed mobility, transfers, gait, stairs, balance training, use of assistive device. TREATMENT CODE/TIME:87999 x14 mins /[id number] DISCHARGE RECOMMENDATION: home with Outpatient PT and Speech
--- NOTE | 2024-02-17 15:32 | DSE_ITS ---
Date of service: 02/17/24 Time of Service: 15:32 DS: Diagnosis Discharge Diagnosis (1) Left-sided cerebrovascular accident (CVA): Status: Acute (2) Emphysema lung: Status: Acute (3) Tobacco use: (4) Hypertension: Discharge Plan Disposition Patient Disposition: Home W/Home Health Services Condition: Good Discharge Details Reason For Visit: CVA Admit Date/Time: 02/16/24 14:18 Admit Provider: Jemal Carlton Attending Provider: Jemal Carlton Primary Care Provider: Meka Baltazar Hospital Course Hospital Course: This is a 68-year-old female who was admitted to the ED yesterday for concerns about a CVA. CT head as well as MRI were indicative of a left occipital and temporal stroke. Patient had a echocardiogram done which was negative for PFO's. Patient was evaluated by PT and there was a recommendation for outpatient PT and speech therapy. This will be done. The patient was given prescriptions for Plavix as well as an increase in her statin so she will go home with Plavix aspirin and statin. In reviewing her record she did have an incidental finding of thyroid nodules and I recommended follow-up with PCP for outpatient ultrasound to which she agreed. I would also recommend following up with vascular surgery for possible carotid artery stenosis and endarterectomy. Patient will be discharged in good health. Home Meds and New Rx's Prescriptions: New aspirin 81 mg Tablet,Delayed Release (Dr/Ec) 81 mg PO DAILY Qty: 30 0RF clopidogrel [Plavix] 75 mg tablet 75 mg PO DAILY Qty: 21 0RF Continued estradiol [Vagifem] 10 mcg tablet 10 mcg VG DAILY multivitamin 1 EACH capsule 1 ea PO DAILY nicotine (polacrilex) [Nicorette] 4 mg lozenge 4 mg buccal Q8H PRN losartan-hydrochlorothiazide 50-12.5 mg tablet 1 tab PO DAILY albuterol sulfate [ProAir HFA] 90 mcg/actuation HFA aerosol inhaler 2 puff inhalation Q6H PRN cholecalciferol (vitamin D3) 25 mcg (1,000 unit) tablet 25 mcg PO DAILY ibuprofen 600 mg tablet 600 mg PO QID PRN (Reason: fever or pain) Qty: 20 0RF acetaminophen 325 mg capsule 650 mg PO Q6H PRN (Reason: fever or pain) Qty: 20 0RF amlodipine 10 mg tablet 10 mg PO DAILY Patient Comments: TAKE ONE TABLET BY MOUTH EVERY DAY Changed atorvastatin 20 mg Tablet 40 mg PO QHS Qty: 0 0RF Discharge Instructions Referrals: Meka Baltazar [Primary Care Provider] - (3-5 days. Would consider outpatient evaluation with vascular surgeon at the discretion of PCP. Recommend follow up thyroid usn 2/2 ct scan results) Activity:: per home health Equipment/Supplies:: No Equipment Needed Diet:: As Tolerated Discharge Orders Discharge Orders: Discharge Order (Routine); Ordered 02/17/24 Ordered By: Jemal Carlton DS: Summary Time Spent with Patient providing and/or coordinating discharge services: Greater than 30 minutes Status at Discharge Functional status at discharge: independent ambulation Overall status at discharge: patient is progressing back to baseline Mental Status: mental status grossly normal Speech and Movement: delayed speech Mood: congruent mood Affect: normal affect Quality:SDOH Health Related Social Needs: No Data to Display Exam Narrative Exam Narrative: Head eyes ears nose and throat: Normocephalic atraumatic mucous membranes moist oropharynx is clear extraocular motions are intact. Patient has a symmetrical smile is able to raise her eyebrows Neck: No lymphadenopathy no JVD no thyroid megaly I cannot preappreciate bruits Cardiovascular: Regular rate and rhythm no murmur rubs or gallops Lungs: Bilateral wheeze worse on expiration Abdomen: Soft nontender nondistended bowel sounds active Extremities: 5 out of 5 strength bilaterally in upper extremities 5 out of 5 strength in right lower extremity and 4 out of 5 strength in left lower extremity with dorsiflexion Psych: Alert and can give a linear history. General: Patient does have some word finding difficulties and her speech has a low eron Neurologic: Cranial nerves II through XII are within normal limits as tested she does have some bilateral past-pointing Psych Mental Status: mental status grossly normal Speech and Movement: delayed speech Mood: congruent mood Affect: normal affect DS: Data Vitals/I&O Vitals and I&O: Vital Signs Temperature 36.4 C L 02/17/24 12:25 Temperature Source Tympanic 02/17/24 12:25 Pulse 65 02/17/24 12:25 Pulse Rhythm Regular 02/16/24 15:20 Pulse 66 02/16/24 14:01 Respiratory Rate 16 02/17/24 12:25 Respiratory Effort Normal, Non-Labored 01/01/25 15:20 Respiratory Depth Normal 02/16/24 15:20 Respiratory Pattern Normal 02/16/24 15:20 Blood Pressure 145/77 H 02/17/24 12:25 Blood Pressure Mean 90 02/16/24 14:01 Blood Pressure Position Sitting 02/16/24 11:23 Pulse Oximetry 93 02/17/24 12:25 Oxygen Delivery Method Room Air 02/17/24 12:25 Oxygen Flow Rate 0 02/17/24 12:25 Pain Level 0 02/17/24 12:25 Comment RN notified 02/17/24 07:15 Intake & Output 02/16/24 02/17/24 02/17/24 23:59 11:59 23:59 Intake Total 250 / 250 360 / 600 240 / 600 Balance 250 / 250 360 / 600 240 / 600 Weight 77.6 kg Intake: Oral 250 / 250 360 / 600 240 / 600 Other: Urine Color Yellow Urine Appearance Clear Comment pt voided in toilet Data Completed and Pending Labs on day of discharge: Labs from last 24 hours 02/17/24 02/16/24 02/16/24 05:52 17:40 15:37 WBC 5.88 RBC 4.37 Hgb 14.0 D Hct 40.2 MCV 92 MCH 32.0 MCHC 34.8 RDW 12.1 Plt Count 157 MPV 10.4 PT 10.8 INR 1.1 Troponin I 11 11 10 Triglycerides 135 Total Cholesterol 206 H LDL Cholesterol, Calc 102 H HDL Cholesterol 77 PFSH All Active Problems (Updated 02/16/24 @ 14:11 by Yogi Ojeda DO) Stroke (Chronic) Left-sided cerebrovascular accident (CVA) (Acute) De Quervain's tenosynovitis (Acute) left wrist Emphysema lung (Acute) S/P laparoscopic cholecystectomy (Acute ~04/13/18) Recurrent biliary colic (Acute) Gallstones (Acute) Medical History (Updated 02/16/24 @ 14:11 by Yogi Ojeda DO) Ptosis Trochanteric bursitis Hypertension Diverticulosis Tobacco use Elevated blood pressure reading Surgical History (Updated 04/13/18 @ 09:30 by Itzel Zimmerman MD) fibroid removal Vaginal hysterectomy Colonoscopy - MAC (01/04/17) Appendectomy Social History Smoking/Tobacco Use Status: Current every day Smoking risk assessment performed?: Yes Alcohol Intake: current Alcohol Intake frequency: a few times a week Drug use: Never Substance use type: does not use Housing: house Time Spent with Patient Time Spent with Patient: 45-69 minutes Time was spent: preparing to see the patient(eg.review tests), obtaining and/or reviewing separately otained hiistory, ordering medications,tests, procedures, referring, communicating with other health pediatric care coordinator, indepentently interpreting results, counseling the patient and care coordination
--- NOTE | 2024-02-17 15:34 | PDOC.HHF2F_ITS ---
Home Health Referral Home Health Orders Clinical synopsis of why skilled professionals are needed: 68 y/o female s/p CVA who needs Speech and PT Medical diagnosis necessitation home health referral: CVA Physical Therapist: Check all that apply Increase strength & endurance for safe mobility at home: Ordered To design/establish home maintenance program: Ordered Fall reduction therapy program for patient with history of frequent falls: Ordered Home safety evaluation and teaching/gait training including stair management (if applicable): Ordered Better Breathing Program: Ordered Speech Therapist: Check all that apply For swallow evaluation/therapy due to dysphagia: Ordered Cognition/memory: Ordered Speech/communication disorders: Ordered Encounter Date and Reason: I certify that a FTF encounter for this patient was performed on February 17, 2024 and that such encounter was related to the primary reason the patient requires home health services. The encounter was conducted in the following manner: * By me as the certifying physician, LOAN COUNSELOR, PA or * By an inpatient physician, LOAN COUNSELOR or PA during an inpatient stay who communicated findings to me, Certification And Authentication I certify that I composed the above information based on my clinical judgment relating to this patient's medical condition and, if applicable, clinical findings communicated to me by the NPP or inpatient physician who performed the FTF encounter. Name of Provider that will be monitoring home health services: Meka Baltazar
[2024-02-17] MEDS: Enoxaparin 40 MG/0.4 ML SYR SC (16:03)
== END 2024-02-17 16:11 | disposition home health service (06) | DRG 66 ==
LOC: ER 14:46 → MS 15:09
PROVIDERS: Admitting Provider Hospitalist; Emergency Provider Student in an Organized Health Care Education/Training Program; PCP Nurse Practitioner Family; Visit Provider Hospitalist
DX: I63.9 Cerebral infarction, unspecified (principal); J43.9 Emphysema, unspecified; E04.2 Nontoxic multinodular goiter; I10 Essential (primary) hypertension; E78.00 Pure hypercholesterolemia, unspecified; R47.1 Dysarthria and anarthria; R29.702 NIHSS score 2; I44.7 Left bundle-branch block, unspecified; F17.210 Nicotine dependence, cigarettes, uncomplicated
CPT/HCPCS: 00123; 36415; 36416; 70496; 70498; 80053; 80061; 82962; 85027; 92610; 93005; 93306; 97162; 97530; 99285; J1650; 70551; 83735; 84443; 84484; 85025; 85610; 85730; 92523; 93010; 99223; 99239; J3490

== ENCOUNTER 2024-03-06 01:22 | Outpatient (CLI) | payer MEDICARE, SELFPAY ==
--- NOTE | 2024-03-06 | DI.US_ITS ---
Exam(s) US THYROID EXAM: US THYROID CLINICAL HISTORY: NONTOXIC SINGLE THYROID NODULE E04.1. TECHNIQUE: Ultrasound thyroid performed using standard protocol. COMPARISON: CT CT BRAIN NECK CTA from 02/16/2024 FINDINGS: There is a nodule in each lobe. RIGHT THYROID LOBE: Measures 2 cm AP x 1.7 cm wide x 5.7 cm craniocaudal There is a single nodule in the right lobe which corresponds to the finding on the recent CT scan. C haracteristics of this nodule are as follows: Size: Measures 1.8 x 1.2 x 1.4 cm Composition: Mixed [id number]-2 point Echogenicity: Isoechoic-1 point Shape: Wider than taller-0 points Margin: Smooth- 0 points Echogenic Foci: Does contain punctate echogenic foci Total Points for this nodule: 5 ACR Ti-Rads Category: TR4 This nodule requires ultrasound-guided FNA as it is a TR 4 level nodule which measures greater than 1 .5 cm ISTHMUS: Normal thickness. There are no nodules in the isthmus. LEFT THYROID LOBE: Measures 1.8 cm AP x 2.0 wide x 5.7 cm craniocaudal There is a solitary similar appearing nodule in the left lobe with characteristics as follows: Size: Measures 2.0 x 1.1 x 1.9 cm Composition: Mixed [id number]-4 point Echogenicity: Isoechoic-1 points Shape: Wider than taller-0 points Margin: Smooth-0 points Echogenic Foci: Contains punctate echogenic foci-3 points Total points for this nodule: 5 ACR Ti-Rads Category: 4 This TR 4 level nodule also requires ultrasound-guided FNA as it measures greater than 1.5 cm LYMPH NODES: There is no significant adenopathy. IMPRESSION: 1. There is a single nodule in each lobe with characteristics as follows. 2. Both of these nodules require ultrasound-guided FNA as they are both TR 4 level nodules which norma ure greater than 1.5 cm. 3. There is no significant lymphadenopathy. DATA REPOSITORY:
== END 2024-03-06 01:42 ==
LOC: DI 01:22
PROVIDERS: PCP Nurse Practitioner Family; Visit Provider Nurse Practitioner Family
DX: E04.1 Nontoxic single thyroid nodule (principal)
CPT/HCPCS: 76536

== ENCOUNTER 2024-06-19 00:32 | Outpatient (CLI) | payer MEDICARE, SELFPAY ==
--- NOTE | 2024-06-19 | DI.US_ITS ---
Exam(s) US CAROTID EXAM: US CAROTID CLINICAL HISTORY: Occlusion and stenosis of unspecified carotid artery, I65.29. TECHNIQUE: Ultrasound carotids performed using grayscale, color-flow, and spectral Doppler imaging. COMPARISON: US US THYROID from 03/06/2024 FINDINGS: CAROTID ARTERIES: There is plaque bilaterally in the common carotid arteries, carotid bulbs, and in t he proximal and more distal internal carotid arteries on both sides the neck. The amount of plaque i s more prominent on the left side where there are elevated velocities, most prominent in the proximal left internal carotid artery with peak systolic velocity of 388 cm/sec indicating severe stenosis at this level. Upper normal velocities are evident on the opposite-right side. VERTEBRAL ARTERIES: Antegrade flow demonstrated in both vertebral arteries.. Measurements: R Bulb: 73.7cm/s PS / 18cm/s ED R CCA: 64.6cm/s PS / 16.7cm/s ED R ECA: 108.4cm/s PS / 6.1cm/s ED R ICA Prox: 100.5cm/s PS / 26.5cm/s ED R ICA Mid: 64.8cm/s PS / 15.8cm/s ED R ICA Distal: 73.8cm/s PS /20.5cm/s ED R Vert: 85.9cm/s PS / 18.1cm/s ED R SVR: 1.6 R DVR: 1.6 L Bulb: 56.8cm/s PS / 13.2cm/s ED L CCA: 53.2cm/s PS / 14.4cm/s ED L ECA: 137cm/s PS / 10.7cm/s ED L ICA Prox: 387.6cm/s PS / 43.2cm/s ED L ICA Mid: 151.7cm/s PS / 20.4cm/s ED L ICA Distal: 75.8cm/s PS / 20.7cm/s ED L Vert: 102.1cm/s PS / 25.9cm/s ED L SVR: 7.3 L DVR: 3 IMPRESSION: Significant plaque bilaterally, more prominent on the left side. There is severe stenosis in the pro ximal left ICA with peak systolic velocity of 388 cm/sec recorded in the proximal left ICA in the [facility]. Amount of stenosis at this level would be over 80%. The amount stenosis on the opposite-right si de is less than 50 percent Antegrade flow is demonstrated in both vertebral arteries. Criteria for Carotid Stenosis: Normal: ICA PSV <125 cm/s no plaque or intimal thickening is visible. <50% stenosis: ICA PSV <125 cm/s and plaque or intimal thickening is visible. 50-69% stenosis: ICA PSV is 125-250 cm/s and plaque is visible. >70% stenosis to near occlusion: ICA PSV >250 cm/s with visible plaque and luminal narrowing. DATA REPOSITORY:
--- NOTE | 2024-06-19 | DI.CTLCSR_ITS ---
Exam(s) CT CHEST LUNG CANCER SCREEN EXAM: CT CHEST LUNG CANCER SCREEN CLINICAL HISTORY: HX NICOTINE DEPENDENCE Z87.891 FORMER SMOKER. TECHNIQUE: Imaging Protocol: Low Dose Technique CONTRAST MATERIAL: None COMPARISON: CT CT CHEST LUNG CANCER SCREEN from 07/16/2021 FINDINGS: CHEST: LUNGS: There are no new ominous pulmonary nodules. There are no confluent infiltrates. Mild increase d markings in the most inferior aspect of the anterior basal segment the right lower lobe noted. The previously described small right lower lobe nodules are less evident on the present study. No new l eft lung findings. No pleural effusions on either side. No significant focal findings in the trache a and mainstem bronchi. MEDIASTINUM: There is no obvious hilar nor mediastinal adenopathy. CARDIAC: Heart size is normal. There is no pericardial effusion.Caliber of the thoracic aorta is wit hin normal limits. OTHER: No adrenal masses. Prior cholecystectomy. OSSEOUS: No significant osseous lesions.No fractures.. IMPRESSION: 1. No significant lung nodules. Mild increased markings are noted in the anterior basal segment of t he right lower lobe, more so than previous. 2. No pleural effusions nor intrathoracic adenopathy. 3. Lung RADS Cat 2 - Benign Appearance / Behavior: Nodules with a very low likelihood of becoming a c linically active cancer due to size or lack of growth Lung-RADS 1.0 CATEGORIES: Category 0 - Prior chest CT exam(s) being located for comparison. Category 1 - Annual screening in 12 months. No nodules or definitely benign nodules. Category 2 - Annual screening in 12 months. Benign appearance. Nodules with low likelihood of becomin g active cancer. Category 3 - 6-month follow-up. Probably benign. Short-term follow-up suggested. Nodules with low lik elihood of becoming active cancer. Category 4A - 3-month follow-up and CT/PET if >8 mm in size. Suspicious finding. Findings which requi re additional testing. Category 4B - Findings which require additional testing and tissue sampling. Category 4X - Category 3 or 4 nodules with additional features or imaging findings that increases the suspicion of malignancy. Modifier S- Potentially clinically significant findings (non lung cancer) RADIATION DOSE DELIVERED: 65.54mGy.cm Total DLP DATA REPOSITORY: All CT scans at this facility are submitted to the National Radiology Data Registry (NRDR) Dose Index Registry (DIR) with the [employer] ([employer]). RADIATION OPTIMIZATION: All CT scans at this facility use at least one of these dose optimization te chniques: automated exposure control; mA and/or kV adjustment per patient size (includes targeted exa ms where dose is matched to clinical indication); or iterative reconstruction.
== END 2024-06-19 00:52 ==
LOC: DI 00:33
PROVIDERS: PCP Nurse Practitioner Family; Visit Provider Nurse Practitioner Family
DX: I65.22 Occlusion and stenosis of left carotid artery (principal); Z87.891 Personal history of nicotine dependence; Z12.2 Encounter for screening for malignant neoplasm of respiratory organs; R91.8 Other nonspecific abnormal finding of lung field
CPT/HCPCS: 71271; 93880

== ENCOUNTER 2024-09-14 11:15 | Outpatient (REF) | payer MEDICARE, SELFPAY ==
[2024-09-14 15:52] LABS: Abs Immature Grans 0.01 10^3/uL (0.0-0.06); HCT 42.0 % (36.0-46.0); HGB 13.7 g/dL (11.2-15.7); Immature Grans % 0.2 %; MCH 29.4 pg (27.0-33.0); MCHC 32.6 % (32.0-36.0); MCV 90 fL (80-95); RBC 4.66 10^6/uL (3.93-5.22); RDW 12.0 % (11.7-14.6); RDW-SD 39.7 fL; WBC 5.53 10^3/uL (4.4-10.8)
[2024-09-14 16:01] LABS: Glucose Negative (Negative)
[2024-09-14 16:10] LABS: C & S Indicated? Yes; RBC Negative HPF (0-2); WBC >50 HPF (0-5)
[2024-09-14 16:12] LABS: RBC Morphology Normal
[2024-09-14 16:53] LABS: ALT 33 U/L (14-59); AST 25 U/L (15-37); Albumin 3.8 g/dL (3.4-5.0); Alkaline Phosphatase 71 U/L (46-116); Anion Gap 6.6 mmol/L (3-11); BUN 9 mg/dL (7-18); Bilirubin, Total 0.8 mg/dL (0.2-1.0); CO2 29.4 mmol/L (21.0-32.0); Calcium 9.5 mg/dL (8.5-10.1); Chloride 100 mmol/L (98-107); Estimated GFR 79.22 (mL/min/1.73m2); Glucose 105 mg/dL (74-106); Magnesium 1.9 mg/dL (1.8-2.4); Potassium 4.5 mmol/L (3.5-5.1); Sodium 136 mmol/L (136-145); Total Protein 6.7 g/dL (6.4-8.2); Vitamin D 25 Total 41 ng/mL (30-100)
[2024-09-14 17:14] LABS: COMMENT (LAB VIEW ONLY) 33.41 mg/dL; Microalb ug/mg Crea 14.7 ug/mg Cr
== END 2024-09-14 11:16 | disposition home or self-care (01) ==
LOC: NCHCN 11:15
PROVIDERS: PCP Nurse Practitioner Family; Visit Provider Student in an Organized Health Care Education/Training Program
DX: E55.9 Vitamin D deficiency, unspecified (principal); I10 Essential (primary) hypertension
CPT/HCPCS: 80053; 82306; 87077; 81003; 81015; 82043; 82570; 83735; 85025; 87086; 87186

== ENCOUNTER → 2024-12-26 00:06 | Outpatient (CLI) | payer MEDICARE, SELFPAY ==
--- NOTE | 2024-12-26 09:30 | DI.US_ITS ---
Exam(s) US THYROID EXAM: US THYROID CLINICAL HISTORY: Assess for change, multinodular goiter,e04.2. TECHNIQUE: Ultrasound thyroid performed using standard protocol. COMPARISON: US US THYROID from 03/06/2024 FINDINGS: RIGHT THYROID LOBE: Measures 2 cm AP x 1.7 cm wide x 4.9 cm craniocaudal Single nodule of concern in the right lobe again noted. This nodule presently measures 2.0 x 1.1 x 1.6 cm Grading characteristics are as follows: Composition: Mixed [id number]-4 point Echogenicity: Solid components of the nodule are hypoechoic-2 points Shape: Wider than taller-0 points Margin: Smooth- 0 points Echogenic Foci: Contains punctate echogenic foci-3 points Total Points for this nodule: 6 ACR Ti-Rads Category: TR4 This nodule should undergo ultrasound FNA as it is a TR 4 level nodule which measures greater than 1.5 cm. It appears minimally more prominent than 1 year ago ISTHMUS: Normal thickness. There are no nodules in the isthmus. LEFT THYROID LOBE: Measures 2.0 cm AP x 1.9 wide x 5.0 cm craniocaudal Single nodule of concern again noted. This nodule presently measures 2.0 x 1.1 x 1.5 cm Grading characteristics are as follows: Composition: Mixed kjdwr-garork-1 points Echogenicity: Solid components of the nodule are hypoechoic-2 points Shape: Wider than taller in the transverse plane-0 points Margin: Smooth-0 points Echogenic Foci: Contains punctate echogenic foci-3 points Total points for this nodule: 6 ACR Ti-Rads Category: 4 This nodule should also undergo Sound guided FNA as it is a TR 4 level nodule which measures greater than 1.5 cm. LYMPH NODES: There is no significant adenopathy. IMPRESSION: 1. Somewhat similar appearing partially solid partially cystic nodule in each lobe, both TR 4 level nodules which should undergo ultrasound-guided FNA as they measure greater than 1.5 cm. 2. There is no significant lymphadenopathy. DATA REPOSITORY:
== END ==
LOC: DI 00:06
PROVIDERS: PCP Nurse Practitioner Family; Visit Provider Otolaryngology
DX: E04.2 Nontoxic multinodular goiter (principal)
CPT/HCPCS: 76536